=== PATIENT | male | born 1930 | race Caucasian/White ===

== ENCOUNTER 2016-05-28 14:11 | Inpatient (IN) | payer MEDICARE, BC ==
[2016-05-28] MEDS ORDERED: NS 0.9% 1000 ML* 1,000 ML IV ONE (14:32)
[2016-05-28 14:52] LABS: Hematocrit 41 % (42-52); Hemoglobin 13.6 g/dl (14.0-18.0); Mean Corpuscular HGB Conc 33 g/dl (31-36); Mean Corpuscular Hemoglobin 31 pg (27-31); Mean Corpuscular Volume 93 fL (80-94); Mean Platelet Volume 7 um3 (7.4-10.4); Red Blood Count 4.42 10^6/ul (4.0-5.4); Red Cell Distribution Width 13 % (10.5-15); White Blood Count 12.3 10^3/ul (3.5-10.8)
--- NOTE | 2016-05-28 15:08 | RAD ---
INDICATION: Pneumonia. COMPARISON: July 05, 2010 TECHNIQUE: PA and lateral dual-energy views were obtained. FINDINGS: Bones/Soft Tissues: There are no acute bony findings. A right-sided PICC catheter terminates in the superior vena cava Cardiomediastinal: The cardiomediastinal silhouette is normal. Lungs: Mild hyperinflation. There is platelike atelectasis in the left lung base. Pleura: There are no pleural effusions. Other: None IMPRESSION: HYPERINFLATION WITH MILD PLATELIKE ATELECTASIS LEFT LUNG BASE.
[2016-05-28 15:10] LABS: BUN/Creatinine Ratio 12.4 (8-20); C Reactive Protein 17.28 mg/L (< 5.00); Calcium 9.8 mg/dL (8.6-10.3); EGFR African American 104.2 (>60); Globulin 3.5 g/dL (2-4); Potassium 3.8 mmol/L (3.5-5.0); Total Bilirubin 0.8 mg/dL (0.2-1.0); Total Protein 7.5 g/dL (6.4-8.9)
[2016-05-28 15:11] LABS: Troponin I 0.01 ng/mL (<0.04)
[2016-05-28 15:40] LABS: Erythrocyte Sed Rate 43 mm/Hr (0-40)
[2016-05-28] MEDS ORDERED: Vancomycin(*) 1,000 MG in NS 0.9% 250 ML* 250 ML IVPB ONE (15:51)
[2016-05-28] MEDS ORDERED: Acetaminophen TAB* 325 MG PO ONE (16:02)
[2016-05-28] MEDS ORDERED: NS 0.9% 250 ML* 250 ML ONE (16:11)
[2016-05-28 16:46] LABS: Urine Bacteria Absent (Absent); Urine Bilirubin Negative (Negative); Urine Glucose 2+(150 mg/dL) (Negative); Urine Nitrite Negative (Negative)
--- NOTE | 2016-05-28 17:13 | ED ---
Manuel Fry Adam, scribed for Zev Campos MD on 05/28/16 at 1426 . Complex/Multi-Sys Presentation - HPI Summary HPI Summary: Pt is an 85 year old male presenting after an episode of shaking earlier today. He states that he suddenly began shaking violently after lunch this afternoon. The shaking subsided before he arrived at the ED. Pt's also states that the pt has been coughing for 10 days and spitting up brown phlegm. He denies any fever, CP, or SOB. Pt is diabetic and his sugar was 250 this morning before eating lunch. He takes DM medications orally. He also has a PICC line in to receive infusions for a bacterial infection in his foot. He goes to wound care. No surgical Hx. No tobacco/alcohol use. FMHx of DM. - History Of Current Complaint Time Seen by Provider: 05/28/16 14:21 Hx Obtained From: Patient, Family/Talent Rep - Onset/Duration: Sudden Onset, Lasting Minutes, Resolved Timing: Constant Severity Currently: Mild Severity Initially: Moderate Associated Signs And Symptoms: Positive: Cough, Other - Shaking - Allergies/Home Medications Allergies/Adverse Reactions: Allergies Allergy/AdvReac Type Severity Reaction Status Date / Time No Known Allergies Allergy Verified 05/27/16 10:55 Home Medications: Home Medications Acetaminophen TAB* [Tylenol TAB*] 650 mg PO BID PRN 05/28/16 [History Confirmed 05/28/16] Levothyroxine TAB* [Synthroid 75 MCG TAB*] 75 mcg PO DAILY 05/28/16 [History Confirmed 05/28/16] PMH/Surg Hx/FS Hx/Imm Hx Endocrine/Hematology History: Reports: Hx Diabetes Cardiovascular History: Reports: Hx Hypertension - Surgical History Surgery Procedure, Year, and Place: skin graft; appy; dislocation of the metatarsal right foot; Infectious Disease History: No Infectious Disease History: Reports: History Other Infectious Disease Denies: Traveled Outside the [place] in Last 30 Days - Family History Known Family History: Positive: Diabetes - Social History Occupation: Retired Lives: With Family - Alcohol Use: Occasionally Hx Substance Use: No Substance Use Type: Reports: None Hx Tobacco Use: No Smoking Status (MU): Never Smoked Tobacco Review of Systems Positive: Other - Shaking. Negative: Fever Negative: Chest Pain Positive: Cough. Negative: Shortness Of Breath All Other Systems Reviewed And Are Negative: Yes Physical Exam - Summary Physical Exam Summary: Vital signs: reviewed General: Patient is comfortable lying in stretcher with no signs of distress HEENT: within normal limits Lungs: CTA B/L CVS: S1 & S2 present. No murmurs appreciated. ABDOMEN: Soft, non-tender. No signs of distention. No rebound no guarding, and no masses palpated. Bowel sounds are normal. EXTREMITIES: FROM in all major joints, positive toes amputation in right foot. Positive picc line in the RUE> NEURO: Alert and oriented x 3. No acute neurological deficits. Speech is normal and follows commands. SKIN: Dry and warm Triage Information Reviewed: Yes Vital Signs On Initial Exam: Initial Vitals Temp Pulse Resp BP Pulse Ox 99.3 F 97 18 155/72 92 05/28/16 14:17 05/28/16 14:17 05/28/16 14:17 05/28/16 14:17 05/28/16 14:17 Vital Signs Reviewed: Yes Diagnostics - Vital Signs Vital Signs Temp Pulse Resp BP Pulse Ox 05/28/16 14:17 99.3 F 97 18 155/72 92 - Laboratory Result Diagrams: 05/28/16 14:40 05/28/16 14:40 Lab Statement: Any lab studies that have been ordered have been reviewed, and results considered in the medical decision making process. - Radiology CXR Radiology Interpretation Completed By: Radiologist - IMPRESSION: HYPERINFLATION WITH MILD PLATELIKE ATELECTASIS LEFT LUNG BASE. - Additional Comments Diagnostic Additional Comments: Lactic Acid - 2.6 Troponin I - 0.01 Influenza A (Rapid) - Negative Influenza B (Rapid) - Negative Complex Multi-Symp Course/Dx Course Of Treatment: Pt is an 85 year old male presenting after an episode of shaking earlier today. He states that he suddenly began shaking violently after lunch this afternoon. The shaking subsided before he arrived at the ED. Pt's also states that the pt has been coughing for 10 days and spitting up brown phlegm. He denies any fever, CP, or SOB. Pt is diabetic and his sugar was 250 this morning before eating lunch. He takes DM medications orally. He also has a PICC line in to receive infusions for a bacterial infection in his foot. He goes to wound care. No surgical Hx. No tobacco/alcohol use. FMHx of DM. Blood work shows an increased WBCs 12.3, slight anemia, no bands. ESR is 43, fibrinogen 449, Na 132, glucose 200 and lactic acid 2.6 and CRP 17.2. UA is negative. Flu is negative. CXR impression: hyperinflation w/ atelectasis of the lung. EKG NSR w/o DALIA. In the ED course he was given a dose of Vancomycin since he was schedule to get another dose today. He may need additional antibiotics which are going to be given by hospitalist. Patient is being treated for Osteomyelitis but he also has a PICC line in the right arm. He was given Tylenol for the fever. He was also started with IVF. I discuss my physical exam, findings and test results with Dr. Live from the hospitalist services and she agrees to admit patient to his services. Patient is hemodynamically stable alert and oriented x 3. Patient is hemodynamically stable and A+O x 3. - Diagnoses Differential Diagnoses/HQI/PQRI: Sepsis, Other - Sepsis, foot infection, hypoglycemia Provider Diagnoses: Osteomyelitis, Fever despite IV antibiotics - Physician Notifications Discussed Care Of Patient With: Dr. Live (Hospitalist) at 16:26. Patient will be admitted. Discharge - Discharge Plan Condition: Stable Disposition: ADMITTED TO [facility] Referrals: Demetrio Whitehead MD [Primary Care Provider] - The documentation as recorded by the Manuel webb Adam accurately reflects the service I personally performed and the decisions made by me, Zev Campos MD.
[2016-05-28] MEDS ORDERED: Dextrose 50% Syringe 50 ML* 25 GM/50 ML SYRINGE IV PUSH PRN (17:19)
[2016-05-28] MEDS ORDERED: Vancomycin per Pharmacy* NOTE FOLLOW UP PRN (17:46)
[2016-05-28] MEDS ORDERED: Vancomycin(*) 1,500 MG in NS 0.9% 250 ML* 250 ML IVPB ONE (18:30)
[2016-05-28] MEDS: NS 0.9% 1000 ML* 1,000 ML IV SCH (18:45)
[2016-05-28] MEDS: Insulin LISPRO* 1 UNITS UNIT SUBCUT SCH (19:45)
[2016-05-28] MEDS: Acetaminophen TAB* 325 MG PO PRN (20:29)
--- NOTE | 2016-05-28 20:45 | HP ---
HISTORY AND PHYSICAL: ADDENDUM: Levon Perez is an 85-year-old male with history of transmetatarsal amputation of the righ t foot in remote past due to trauma. The patient also has history of diabetes and recent diagnosis of chronic osteo of the right foot, treated with outpatient doses of intravenous daptomycin. Today, he presented after he spiked a fever of 102 and got confused. But for mild leukocytosis, there is no other evidence of infection. It is possible that his osteomyelitis is causing the fever, althoug h the wound does not appear to be infected acutely. The patient is going to be observed on telemetr y monitored bed. Infectious Diseases consult is going to be requested. Further recommendations as noted in history and physical dictated by Jena Kramer NP on 05/28/16, with which I lorelei collins [id number]/[facility] #: [id number]
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
[2016-05-28] MEDS: Cefepime(*) 2 GM in NS 0.9% 50 ML* 50 ML IVPB SCH (22:00)
[2016-05-28] MEDS: Heparin VIAL(*) 5000 UNITS/ML VIAL (FIVE THOUSAND) SUBCUT SCH (23:45)
[2016-05-29] MEDS: Levothyroxine TAB* 75 MCG TAB PO SCH (05:26)
[2016-05-29] MEDS: Heparin VIAL(*) 5000 UNITS/ML VIAL (FIVE THOUSAND) SUBCUT SCH ×3 (05:26→23:15)
[2016-05-29] MEDS: Acetaminophen TAB* 325 MG PO PRN ×2 (05:26→16:06)
[2016-05-29 06:17] LABS: Hematocrit 37 % (42-52); Hemoglobin 12.5 g/dl (14.0-18.0); Mean Corpuscular HGB Conc 34 g/dl (31-36); Mean Corpuscular Hemoglobin 31 pg (27-31); Mean Corpuscular Volume 93 fL (80-94); Mean Platelet Volume 7 um3 (7.4-10.4); Red Cell Distribution Width 14 % (10.5-15); White Blood Count 8.4 10^3/ul (3.5-10.8)
[2016-05-29] MEDS: Vancomycin(*) 1,250 MG IV IVPB SCH ×4 (06:17→17:24)
[2016-05-29] MEDS: NS 0.9% 1000 ML* 1,000 ML IV SCH ×2 (06:18→17:25)
[2016-05-29 06:34] LABS: BUN/Creatinine Ratio 17.1 (8-20); Calcium 8.8 mg/dL (8.6-10.3); EGFR African American 125.1 (>60); EGFR Non-African American 97.2 (>60); Potassium 3.6 mmol/L (3.5-5.0)
[2016-05-29] MEDS: Cefepime(*) 2 GM in NS 0.9% 50 ML* 50 ML IVPB SCH ×2 (08:15→20:13)
[2016-05-29] MEDS: Lisinopril TAB* 10 MG PO SCH (08:15)
[2016-05-29] MEDS: Insulin LISPRO* 1 UNITS UNIT SUBCUT SCH ×3 (08:16→17:24)
[2016-05-29] MEDS ORDERED: DAPTOMYCIN IV SCH (09:00)
--- NOTE | 2016-05-29 10:52 | PN ---
Subjective Date of Service: 05/29/16 Interval History: . Pt reports "I feel pretty good" and dont understand why I am here reporting he "never felt bad and only was shaking". Today he denies fever or further shaking/ chills. 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 Objective Active Medications: Acetaminophen (Tylenol Tab*) 650 mg PO Q4H PRN PRN Reason: FEVER/PAIN Last Admin: 05/29/16 05:26 Dose: 650 mg Dextrose (D50w Syringe 50 Ml*) 12.5 gm IV PUSH .FOR FS < 60 - SS PRN PRN Reason: FS < 60 Heparin Sodium (Porcine) (Heparin Vial(*)) 5,000 units SUBCUT Q8HR [facility] Last Admin: 05/29/16 05:26 Dose: 5,000 units Sodium Chloride (Ns 0.9% 1000 Ml*) 1,000 mls @ 100 mls/hr IV PER RATE [facility] Last Admin: 05/29/16 06:18 Dose: 100 mls/hr Cefepime HCl 2 gm/ Sodium (Chloride) 50 mls @ 100 mls/hr IVPB Q12H [facility] Last Admin: 05/29/16 08:15 Dose: 100 mls/hr Vancomycin HCl 1,250 mg/ (Sodium Chloride) 250 mls @ 166.667 mls/hr IVPB Q12H [facility] Last Admin: 05/29/16 06:17 Dose: 166.667 mls/hr Insulin Human Lispro (Humalog*) 0 - 10 units SUBCUT AC [facility] PRN Reason: Protocol Last Admin: 05/29/16 08:16 Dose: 2 units Levothyroxine Sodium (Synthroid Tab*) 75 mcg PO DAILY@0600 [facility] Last Admin: 05/29/16 05:26 Dose: 75 mcg Lisinopril (Prinivil Tab*) 10 mg PO DAILY [facility] Last Admin: 05/29/16 08:15 Dose: 10 mg Pharmacy Consult (Vancomycin Per Pharmacy*) 1 note FOLLOW UP . PRN PRN Reason: PER PROTOCOL Pharmacy Profile Note (Vancomycin Trough Check) 1 note FOLLOW UP 0600 ONE Stop: 05/30/16 06:01 Vital Signs 05/28/16 05/28/16 05/28/16 17:02 17:16 17:25 Temperature Pulse Rate 103 95 Respiratory 21 18 21 Rate Blood Pressure 144/75 (mmHg) O2 Sat by Pulse 94 95 Oximetry 05/28/16 05/28/16 05/28/16 17:30 18:00 18:13 Temperature 99.7 F Pulse Rate 92 Respiratory 22 27 Rate Blood Pressure 134/61 131/94 (mmHg) O2 Sat by Pulse 96 Oximetry 05/28/16 05/28/16 05/28/16 18:43 20:00 23:59 Temperature 101.8 F 98.2 F Pulse Rate 89 64 Respiratory 18 16 16 Rate Blood Pressure 119/51 99/47 (mmHg) O2 Sat by Pulse 93 96 96 Oximetry 05/29/16 05/29/16 05/29/16 05:12 07:44 08:00 Temperature 100.0 F 98.1 F Pulse Rate 73 65 Respiratory 20 15 15 Rate Blood Pressure 127/45 110/43 (mmHg) O2 Sat by Pulse 100 90 92 Oximetry Oxygen Devices in Use Now: None Appearance: elderly male laying in bed in NAD. A+O x3, noted mild confusion easily reoriented Eyes: No Scleral Icterus, PERRLA Ears/Nose/Mouth/Throat: NL Teeth, Lips, Gums, Mucous Membranes Moist Neck: NL Appearance and Movements; NL JVP Respiratory: Symmetrical Chest Expansion and Respiratory Effort, Clear to Auscultation Cardiovascular: NL Sounds; No Murmurs; No JVD, RRR, No Edema Abdominal: NL Sounds; No Tenderness; No Distention Extremities: No Edema, - - s/p right transmetatarsal amputaion - no wounds or drainage noted Skin: No Rash or Ulcers, No Nodules or Sclerosis Neurological: Alert and Oriented x 3, NL Sensation, NL Muscle Strength and Tone Lines/Tubes/Other Access: Clean, Dry and Intact Peripheral IV Nutrition: Taking PO's Result Diagrams: 05/29/16 05:26 05/29/16 05:26 Microbiology and Other Data: Microbiology 05/28/16 16:29 Gram Stain - Final Sputum Assess/Plan/Problems-Billing Assessment: Mr. Ji is a 85 yo male with a PMH of traumatic right transmetatarsal amputation in 1947, with hx of right osteomyelitis currently on IV abx as an outpt, hx of DM, HTN who presented 3/2 with complaints of rigor, confusion and fever. - Patient Problems (1) Bacterial sepsis Comment: - Pts qSOFA score on admission was 1, however he mets sepsis criteria with AMS, fever, leukocytosis, increased RR and was found to have Klebsiella growng in his Blood cx's suspect form PICC line. PICC line removed. - ID following, continue cefepime and vanco. Repeat blood cx's in am. - NS @ 75 mls/hr (2) Diabetes Comment: - FSBG ACHS with lispro SS - CC diet (3) HTN (hypertension) Comment: - controlled. COntinue lisinopril (4) Hypothyroid Comment: - continue synthroid (5) DVT prophylaxis Comment: HSQ (6) Full code status Status and Disposition: inpatient with bacteremia requiring IV abx.
--- NOTE | 2016-05-29 13:28 | CONS ---
CONSULTATION REPORT: DATE OF CONSULT: 05/29/16 REQUESTING PROVIDER: Jena Kramer NP CONSULTING SERVICE: Infectious Disease. REASON FOR CONSULT: Rigors. IMPRESSION: 1. Sepsis present on admission, improving. 2. Gram-negative bob bacteremia without dysuria or abdominal symptoms. Most likely, this is an intravascular device infection, he has a PICC line. His rigors came on soon after his infusions yesterday. 3. 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 4. He has been having hyperbaric oxygen therapy and now with hearing loss and bilateral tube placement. 5. Type 2 diabetes with neuropathy. RECOMMENDATIONS: 1. Continue vancomycin, goal trough 15 to 20, to cover his original infection, which I presume to be MRSA related. I will also get a hold of his infectious disease doctor in [place] to confirm that and find out more about his recent infection history. 2. Continue cefepime to cover the gram-negative bob and will remove his PICC line, recheck blood cultures tomorrow assuming no other source is found including urine and if the blood culture is clear, he can have a new PICC line placed. 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 He is followed at [place]. He has had wound care there, was started on antibiotics in March. The wound is closed up. His foot to him seems back to normal. He is continued on daptomycin infusions once a day and hyperbarics up until last week when he developed acute hearing loss during a session. He has felt well until yesterday about an hour after the infusion, he developed shaking chills that he could not stop. It came on a little bit later. He had a temperature of 103, so he came to the hospital. His white count was 12,000. His influenza PCR was negative. He had a fever of 39 degrees overnight. His blood pressure was in the 90s. Heart rate in the 120s. Lactate of 3 when he came into the hospital. He was started on vancomycin. I discussed the case with Jena A. Winkleblack-Oro, LABOR DELIVERY RN, overnight and added cefepime. Blood cultures this morning were positive for gram-negative rods. He and his both have a cough for about 10 days without dyspnea or chest pain that is occasionally productive of thin sputum. A sample was sent last night, showed 4+ epithelial cells, 4+ polys, 4+ gram-negative coccobacilli, 4+ gram- positive bacilli, 4+ gram-positive cocci, and 3+ gram-negative diplococci. Cultures pending. A chest x-ray showed atelectasis at the left base. He has no other focal signs or symptoms. No prosthetic material present. PAST MEDICAL HISTORY: 1. Type 2 diabetes. 2. 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 3. Obesity. 4. Hypothyroidism. 5. Hyperlipidemia. 6. Osteoarthritis. 7. Hypertension. 8. Status post skin grafts to right foot x2. 9. Status post appendectomy. MEDICATIONS: 1. Tylenol. 2. Dextrose. 3. Heparin subcutaneous injection. 4. Insulin lispro. 5. Levothyroxine. 6. Lisinopril. 7. Cefepime 2 g every 12 hours. 8. Vancomycin 1250 mg every 12 hours. ALLERGIES: No known drug allergies. FAMILY HISTORY: No recurrent infections. SOCIAL HISTORY: Lives at [facility] with his . He has no travel. No sick contacts. REVIEW OF SYSTEMS: All negative except as noted above. PHYSICAL EXAM: Vital Signs: Temperature is 36.7, heart rate 60, respiratory rate 15, blood pressure 110/40, O2 sat 90% on room air. General: He is not in distress. He is not diaphoretic. Neurological: He is awake, oriented x3. Follows all commands. Moves all extremities. HEENT: There is no conjunctival hemorrhage. Oropharynx without lesions. Neck: Neck is supple without nuchal rigidity. Lymph Nodes: There is no cervical, supraclavicular, inguinal, axillary, or epitrochlear lymphadenopathy. Lungs: Clear to auscultation bilaterally. Heart: Regular rate and rhythm without rubs, murmurs, or gallops. Abdomen: Soft, nontender, nondistended, and obese. There is no rebound. Skin: There is no rash or splinter hemorrhages. Musculoskeletal: Right foot, distal half is absent. There is a small area of induration without eschar or erythema on the plantar aspect of the previous wound. DIAGNOSTIC STUDIES/LAB DATA: White blood cell count 8, hemoglobin 12, and platelets 214. Creatinine 0.7. Lactic acid is 1, down from 2.6. Please see impressions and recommendations as outlined above. Thanks for asking me to see Mr. Perez in consultation. [id number]/[facility] #: [id number] MTDD
[2016-05-30] MEDS: NS 0.9% 1000 ML* 1,000 ML IV SCH ×2 (01:10→19:46)
[2016-05-30] MEDS ORDERED: Vancomycin Trough Check NOTE FOLLOW UP ONE (06:00)
[2016-05-30] MEDS: Levothyroxine TAB* 75 MCG TAB PO SCH (06:02)
[2016-05-30] MEDS: Heparin VIAL(*) 5000 UNITS/ML VIAL (FIVE THOUSAND) SUBCUT SCH ×3 (06:02→20:57)
[2016-05-30 06:33] LABS: Hematocrit 37 % (42-52); Hemoglobin 12.5 g/dl (14.0-18.0); Mean Corpuscular HGB Conc 33 g/dl (31-36); Mean Corpuscular Hemoglobin 31 pg (27-31); Mean Corpuscular Volume 93 fL (80-94); Mean Platelet Volume 7 um3 (7.4-10.4); Red Blood Count 4.04 10^6/ul (4.0-5.4); Red Cell Distribution Width 13 % (10.5-15); White Blood Count 5.4 10^3/ul (3.5-10.8)
[2016-05-30 07:11] LABS: BUN/Creatinine Ratio 13.7 (8-20); Calcium 8.8 mg/dL (8.6-10.3); EGFR Non-African American 101.9 (>60); Potassium 3.9 mmol/L (3.5-5.0)
[2016-05-30] MEDS: Vancomycin(*) 1,250 MG IV IVPB SCH ×2 (07:11)
[2016-05-30] MEDS: Insulin LISPRO* 1 UNITS UNIT SUBCUT SCH ×4 (08:44→17:44)
[2016-05-30] MEDS: Lisinopril TAB* 10 MG PO SCH (08:44)
--- NOTE | 2016-05-30 09:44 | PN ---
Subjective Date of Service: 05/30/16 Interval History: Patient seen and examined at bedside. Mr. Perez is sitting up on edge of bed, eating breakfast. He denies fever/chills, CP, SOB, abd pain, n/v, LE pain. He states, "I didn't know I had an infection. I just got really bad shaking." No other acute concerns. The patient does not recall if someone had discussed this with him previously. Family History: Unchanged from Admission Social History: Unchanged from Admission Past Medical History: Unchanged from Admission Objective Active Medications: Acetaminophen (Tylenol Tab*) 650 mg PO Q4H PRN PRN Reason: FEVER/PAIN Last Admin: 05/29/16 16:06 Dose: 650 mg Dextrose (D50w Syringe 50 Ml*) 12.5 gm IV PUSH .FOR FS < 60 - SS PRN PRN Reason: FS < 60 Heparin Sodium (Porcine) (Heparin Vial(*)) 5,000 units SUBCUT Q8HR [facility] Last Admin: 05/30/16 06:02 Dose: 5,000 units Cefepime HCl 2 gm/ Sodium (Chloride) 50 mls @ 100 mls/hr IVPB Q12H [facility] Last Admin: 05/29/16 20:13 Dose: 100 mls/hr Vancomycin HCl 1,250 mg/ (Sodium Chloride) 250 mls @ 166.667 mls/hr IVPB Q12H [facility] Last Admin: 05/30/16 07:11 Dose: 166.667 mls/hr Sodium Chloride (Ns 0.9% 1000 Ml*) 1,000 mls @ 75 mls/hr IV PER RATE [facility] Last Admin: 05/30/16 01:10 Dose: 75 mls/hr Insulin Human Lispro (Humalog*) 0 - 10 units SUBCUT AC [facility] PRN Reason: Protocol Last Admin: 05/30/16 08:44 Dose: 2 units Levothyroxine Sodium (Synthroid Tab*) 75 mcg PO DAILY@0600 [facility] Last Admin: 05/30/16 06:02 Dose: 75 mcg Lisinopril (Prinivil Tab*) 10 mg PO DAILY [facility] Last Admin: 05/30/16 08:44 Dose: 10 mg Pharmacy Consult (Vancomycin Per Pharmacy*) 1 note FOLLOW UP . PRN PRN Reason: PER PROTOCOL Vital Signs 05/29/16 05/29/16 05/29/16 15:23 19:50 20:00 Temperature 100.2 F 98.2 F Pulse Rate 79 71 Respiratory 16 16 16 Rate Blood Pressure 100/36 120/58 (mmHg) O2 Sat by Pulse 96 93 95 Oximetry 05/29/16 05/30/16 23:42 07:43 Temperature 98.7 F 97.6 F Pulse Rate 61 70 Respiratory 16 18 Rate Blood Pressure 113/46 132/61 (mmHg) O2 Sat by Pulse 95 93 Oximetry Oxygen Devices in Use Now: None Appearance: Older male patient, sitting on edge of bed, in NAD Eyes: No Scleral Icterus, PERRLA Ears/Nose/Mouth/Throat: Clear Oropharnyx, Mucous Membranes Moist Neck: NL Appearance and Movements; NL JVP Respiratory: Symmetrical Chest Expansion and Respiratory Effort, Clear to Auscultation Cardiovascular: NL Sounds; No Murmurs; No JVD, RRR, No Edema Abdominal: NL Sounds; No Tenderness; No Distention Extremities: No Edema, No Clubbing, Cyanosis, - - s/p right transmetatarsal amputation, no drainage or wounds noted Skin: No Rash or Ulcers Neurological: Alert and Oriented x 3 - with some mild forgetfulness and confusion, patient reorients easily Lines/Tubes/Other Access: Clean, Dry and Intact Peripheral IV Nutrition: Taking PO's Result Diagrams: 05/30/16 06:11 05/30/16 06:11 Microbiology and Other Data: Microbiology 05/28/16 16:29 Gram Stain - Final Sputum Assess/Plan/Problems-Billing Assessment: Mr. Ji is a 85 yo male with a PMH of traumatic right transmetatarsal amputation in 1947, with hx of right osteomyelitis currently on IV abx as an outpt, hx of DM, HTN who presented 3/2 with complaints of rigor, confusion and fever. - Patient Problems (1) Bacterial sepsis Code(s): A41.9 - SEPSIS, UNSPECIFIED ORGANISM Comment: The qSOFA score on admission was 1; however he meets sepsis criteria with AMS, fever, leukocytosis, increased RR, and Klebsiella growth in his blood cultures. Suspected source is PICC line, which has been removed. ID following, continue cefepime and vancomycin. Repeat blood cultures drawn this AM. Continue IV NS @ 75 mls/hr. (2) Diabetes Code(s): E11.9 - TYPE 2 DIABETES MELLITUS WITHOUT COMPLICATIONS Comment: BG 180s-200s. Continue FSBG ACHS. Increase Lispro SSI and add carb coverage. Consistent carbohydrate diet. (3) HTN (hypertension) Code(s): I10 - ESSENTIAL (PRIMARY) HYPERTENSION Comment: Normotensive. Continue lisinopril. (4) Hypothyroid Code(s): E03.9 - HYPOTHYROIDISM, UNSPECIFIED Comment: Continue levothyroxine. (5) DVT prophylaxis Code(s): [id number] - Comment: SQ heparin (6) Full code status Code(s): Z78.9 - OTHER SPECIFIED HEALTH STATUS Status and Disposition: Inpatient with bacteremia requiring IV abx.
[2016-05-30] MEDS: Cefepime(*) 2 GM in NS 0.9% 50 ML* 50 ML IVPB SCH ×2 (10:04→20:57)
[2016-05-30] MEDS: Vancomycin(*) 1,000 MG in NS 0.9% 250 ML* 250 ML IVPB SCH (16:28)
[2016-05-31] MEDS: Vancomycin(*) 1,000 MG in NS 0.9% 250 ML* 250 ML IVPB SCH ×3 (00:28→16:47)
[2016-05-31] MEDS: Heparin VIAL(*) 5000 UNITS/ML VIAL (FIVE THOUSAND) SUBCUT SCH ×3 (06:52→20:53)
[2016-05-31] MEDS: Levothyroxine TAB* 75 MCG TAB PO SCH (06:53)
[2016-05-31 07:43] LABS: BUN/Creatinine Ratio 13.7 (8-20); Calcium 8.7 mg/dL (8.6-10.3); EGFR Non-African American 101.9 (>60); Potassium 3.8 mmol/L (3.5-5.0)
[2016-05-31] MEDS ORDERED: Vancomycin Trough Check NOTE FOLLOW UP ONE (08:00)
[2016-05-31] MEDS: Cefepime(*) 2 GM in NS 0.9% 50 ML* 50 ML IVPB SCH ×2 (08:24→20:11)
[2016-05-31] MEDS: Insulin LISPRO* 1 UNITS UNIT SUBCUT SCH ×6 (09:11→18:31)
[2016-05-31] MEDS: Lisinopril TAB* 10 MG PO SCH (09:11)
--- NOTE | 2016-05-31 10:23 | PN ---
Subjective Date of Service: 05/31/16 Interval History: Patient seen and examined at bedside. He is resting comfortably. He denies fever /chills, CP, SOB, abd pain, leg pain, n/v. No acute nursing concerns. Family History: Unchanged from Admission Social History: Unchanged from Admission Past Medical History: Unchanged from Admission Objective Active Medications: Acetaminophen (Tylenol Tab*) 650 mg PO Q4H PRN PRN Reason: FEVER/PAIN Last Admin: 05/29/16 16:06 Dose: 650 mg Dextrose (D50w Syringe 50 Ml*) 12.5 gm IV PUSH .FOR FS < 60 - SS PRN PRN Reason: FS < 60 Heparin Sodium (Porcine) (Heparin Vial(*)) 5,000 units SUBCUT Q8HR [facility] Last Admin: 05/31/16 06:52 Dose: 5,000 units Cefepime HCl 2 gm/ Sodium (Chloride) 50 mls @ 100 mls/hr IVPB Q12H [facility] Last Admin: 05/31/16 08:24 Dose: 100 mls/hr Sodium Chloride (Ns 0.9% 1000 Ml*) 1,000 mls @ 75 mls/hr IV PER RATE [facility] Last Admin: 05/30/16 19:46 Dose: 75 mls/hr Vancomycin HCl 1,000 mg/ (Sodium Chloride) 250 mls @ 166.667 mls/hr IVPB Q8H [facility] Last Admin: 05/31/16 00:28 Dose: 166.667 mls/hr Insulin Human Lispro (Humalog*) 0 units SUBCUT AC [facility] PRN Reason: Protocol Last Admin: 05/31/16 09:11 Dose: 6 units Insulin Human Lispro (Humalog*) 0 - 10 units SUBCUT AC [facility] PRN Reason: Protocol Last Admin: 05/31/16 09:11 Dose: 3 unit Levothyroxine Sodium (Synthroid Tab*) 75 mcg PO DAILY@0600 [facility] Last Admin: 05/31/16 06:53 Dose: 75 mcg Lisinopril (Prinivil Tab*) 10 mg PO DAILY [facility] Last Admin: 05/31/16 09:11 Dose: 10 mg Pharmacy Consult (Vancomycin Per Pharmacy*) 1 note FOLLOW UP . PRN PRN Reason: PER PROTOCOL Vital Signs 05/30/16 05/30/16 05/30/16 15:39 15:42 21:10 Temperature 97.8 F Pulse Rate 66 73 Respiratory 16 20 Rate Blood Pressure 99/49 118/58 (mmHg) O2 Sat by Pulse 95 Oximetry 05/30/16 05/31/16 05/31/16 23:31 07:11 07:43 Temperature 97.3 F 97.9 F Pulse Rate 63 57 Respiratory 16 16 16 Rate Blood Pressure 136/53 119/46 (mmHg) O2 Sat by Pulse 97 96 96 Oximetry Oxygen Devices in Use Now: None Appearance: Older male patient, lying in bed, in NAD Eyes: PERRLA Ears/Nose/Mouth/Throat: Clear Oropharnyx, Mucous Membranes Moist Neck: NL Appearance and Movements; NL JVP Respiratory: Symmetrical Chest Expansion and Respiratory Effort, Clear to Auscultation Cardiovascular: NL Sounds; No Murmurs; No JVD, RRR Abdominal: NL Sounds; No Tenderness; No Distention Extremities: No Edema, No Clubbing, Cyanosis, - - s/p right transmetatarsal amputation with no open wounds/drainage noted Skin: No Rash or Ulcers Neurological: Alert and Oriented x 3 Lines/Tubes/Other Access: Clean, Dry and Intact Peripheral IV Result Diagrams: 05/30/16 06:11 05/31/16 07:23 Microbiology and Other Data: Microbiology 05/28/16 16:29 Gram Stain - Final Sputum Assess/Plan/Problems-Billing Assessment: Mr. Ji is a 85 yo male with a PMH of traumatic right transmetatarsal amputation in 1947, with hx of right osteomyelitis currently on IV abx as an outpt, hx of DM, HTN who presented 3/2 with complaints of rigor, confusion and fever. - Patient Problems (1) Bacterial sepsis Code(s): A41.9 - SEPSIS, UNSPECIFIED ORGANISM Comment: The qSOFA score on admission was 1; however he meets sepsis criteria with AMS, fever, leukocytosis, increased RR, and Klebsiella growth in his blood cultures. Suspected source is PICC line, which has been removed. ID following, continue cefepime and vancomycin. Repeat blood cultures drawn with no growth thus far. Continue IV NS @ 75 mls/hr. (2) Diabetes Code(s): E11.9 - TYPE 2 DIABETES MELLITUS WITHOUT COMPLICATIONS Comment: BG 180s-200s. Continue FSBG ACHS. Increase Lispro SSI and add carb coverage. Will start Lantus 10 units this evening. Consistent carbohydrate diet. (3) HTN (hypertension) Code(s): I10 - ESSENTIAL (PRIMARY) HYPERTENSION Comment: Normotensive. Continue lisinopril. (4) Hypothyroid Code(s): E03.9 - HYPOTHYROIDISM, UNSPECIFIED Comment: Continue levothyroxine. (5) DVT prophylaxis Code(s): CGE0357 - Comment: SQ heparin (6) Full code status Code(s): Z78.9 - OTHER SPECIFIED HEALTH STATUS Status and Disposition: Inpatient with bacteremia requiring IV abx. Will require new PICC placement and likely further outpatient IV abx.
[2016-05-31] MEDS: NS 0.9% 1000 ML* 1,000 ML IV SCH (16:47)
[2016-05-31] MEDS: Insulin GLARGINE(*) 1 UNITS UNIT SUBCUT SCH (20:53)
[2016-06-01] MEDS: Vancomycin(*) 1,000 MG in NS 0.9% 250 ML* 250 ML IVPB SCH ×4 (00:36→23:22)
[2016-06-01] MEDS: Levothyroxine TAB* 75 MCG TAB PO SCH (05:43)
[2016-06-01] MEDS: Heparin VIAL(*) 5000 UNITS/ML VIAL (FIVE THOUSAND) SUBCUT SCH ×3 (05:43→21:14)
[2016-06-01 06:34] LABS: Hematocrit 37 % (42-52); Hemoglobin 12.4 g/dl (14.0-18.0); Mean Corpuscular HGB Conc 34 g/dl (31-36); Mean Corpuscular Hemoglobin 31 pg (27-31); Mean Corpuscular Volume 92 fL (80-94); Mean Platelet Volume 7 um3 (7.4-10.4); Red Blood Count 3.98 10^6/ul (4.0-5.4); Red Cell Distribution Width 14 % (10.5-15); White Blood Count 7.5 10^3/ul (3.5-10.8)
[2016-06-01 06:56] LABS: BUN/Creatinine Ratio 12.9 (8-20); EGFR African American 137.5 (>60); EGFR Non-African American 106.9 (>60); Potassium 3.8 mmol/L (3.5-5.0)
[2016-06-01] MEDS: Insulin LISPRO* 1 UNITS UNIT SUBCUT SCH ×6 (08:58→17:56)
[2016-06-01] MEDS: Lisinopril TAB* 10 MG PO SCH (09:00)
[2016-06-01] MEDS: Cefepime(*) 2 GM in NS 0.9% 50 ML* 50 ML IVPB SCH ×2 (09:01→21:14)
--- NOTE | 2016-06-01 10:47 | PN ---
Subjective Date of Service: 06/01/16 Interval History: Patient seen and examined at bedside. Mr. Perez is lying in bed and denies any acute concerns, including foot or leg pain, fever/chills, chest pain, SOB, abd pain, n/v. at bedside. She has inquired about further wound care and has requested the wound clinic look at the patient's foot, as they previously followed with the patient. We examined the foot together at bedside and no open areas noted. Pt denies drainage or focal points of pain; however, she still requested wound care consult. She also requested nutrition and unit educator consult to know how to better take care of her at home. Family History: Unchanged from Admission Social History: Unchanged from Admission Past Medical History: Unchanged from Admission Objective Active Medications: Acetaminophen (Tylenol Tab*) 650 mg PO Q4H PRN PRN Reason: FEVER/PAIN Last Admin: 05/29/16 16:06 Dose: 650 mg Dextrose (D50w Syringe 50 Ml*) 12.5 gm IV PUSH .FOR FS < 60 - SS PRN PRN Reason: FS < 60 Heparin Sodium (Porcine) (Heparin Vial(*)) 5,000 units SUBCUT Q8HR [facility] Last Admin: 06/01/16 05:43 Dose: 5,000 units Cefepime HCl 2 gm/ Sodium (Chloride) 50 mls @ 100 mls/hr IVPB Q12H [facility] Last Admin: 06/01/16 09:01 Dose: 100 mls/hr Sodium Chloride (Ns 0.9% 1000 Ml*) 1,000 mls @ 75 mls/hr IV PER RATE [facility] Last Admin: 05/31/16 16:47 Dose: 75 mls/hr Vancomycin HCl 1,000 mg/ (Sodium Chloride) 250 mls @ 166.667 mls/hr IVPB Q8H [facility] Last Admin: 06/01/16 10:20 Dose: 166.667 mls/hr Insulin Glargine (Lantus(*)) 10 units SUBCUT Q24H [facility] Last Admin: 05/31/16 20:53 Dose: 10 units Insulin Human Lispro (Humalog*) 0 units SUBCUT AC [facility] PRN Reason: Protocol Last Admin: 06/01/16 08:58 Dose: 3 units Insulin Human Lispro (Humalog*) 0 - 10 units SUBCUT AC [facility] PRN Reason: Protocol Last Admin: 06/01/16 08:59 Dose: 6 unit Levothyroxine Sodium (Synthroid Tab*) 75 mcg PO DAILY@0600 [facility] Last Admin: 06/01/16 05:43 Dose: 75 mcg Lisinopril (Prinivil Tab*) 10 mg PO DAILY [facility] Last Admin: 06/01/16 09:00 Dose: 10 mg Pharmacy Consult (Vancomycin Per Pharmacy*) 1 note FOLLOW UP . PRN PRN Reason: PER PROTOCOL Vital Signs 05/31/16 05/31/16 05/31/16 15:23 20:00 23:36 Temperature 97.5 F 98.5 F Pulse Rate 72 58 Respiratory 18 18 Rate Blood Pressure 120/68 131/69 (mmHg) O2 Sat by Pulse 96 96 Oximetry 06/01/16 07:24 Temperature 98.1 F Pulse Rate 69 Respiratory 18 Rate Blood Pressure 139/73 (mmHg) O2 Sat by Pulse 93 Oximetry Oxygen Devices in Use Now: None Appearance: Older gentleman, lying in bed, in NAD Eyes: PERRLA Ears/Nose/Mouth/Throat: Clear Oropharnyx, Mucous Membranes Moist Neck: NL Appearance and Movements; NL JVP Respiratory: Symmetrical Chest Expansion and Respiratory Effort, Clear to Auscultation Cardiovascular: NL Sounds; No Murmurs; No JVD, RRR Abdominal: NL Sounds; No Tenderness; No Distention Extremities: No Edema, No Clubbing, Cyanosis, - - s/p right transmetatarsal amputation, no open wounds or drainage, small area of eschar to sole of foot Neurological: Alert and Oriented x 3 Lines/Tubes/Other Access: Clean, Dry and Intact Peripheral IV Nutrition: Taking PO's Result Diagrams: 06/01/16 06:24 06/01/16 06:24 Microbiology and Other Data: Microbiology 05/28/16 16:29 Gram Stain - Final Sputum Assess/Plan/Problems-Billing Assessment: Mr. Ji is a 85 yo male with a PMH of traumatic right transmetatarsal amputation in 1947, with hx of right osteomyelitis currently on IV abx as an outpt, hx of DM, HTN who presented 3/2 with complaints of rigor, confusion and fever. - Patient Problems (1) Bacterial sepsis Code(s): A41.9 - SEPSIS, UNSPECIFIED ORGANISM Comment: The qSOFA score on admission was 1; however he meets sepsis criteria with AMS, fever, leukocytosis, increased RR, and Klebsiella growth in his blood cultures. Suspected source is PICC line, which has been removed. ID following, continue cefepime and vancomycin. Repeat blood cultures drawn with no growth thus far. (2) Diabetes Code(s): E11.9 - TYPE 2 DIABETES MELLITUS WITHOUT COMPLICATIONS Comment: BG 140s-200s. Continue FSBG ACHS with Lispro SSI and increase carb coverage. Continue Lantus in evening. Consistent carbohydrate diet. (3) HTN (hypertension) Code(s): I10 - ESSENTIAL (PRIMARY) HYPERTENSION Comment: Normotensive. Continue lisinopril. (4) Hypothyroid Code(s): E03.9 - HYPOTHYROIDISM, UNSPECIFIED Comment: Continue levothyroxine. (5) DVT prophylaxis Code(s): [id number] - Comment: SQ heparin (6) Full code status Code(s): Z78.9 - OTHER SPECIFIED HEALTH STATUS Status and Disposition: Inpatient with bacteremia requiring IV abx. Will require new PICC placement and likely further outpatient IV abx.
--- NOTE | 2016-06-01 12:51 | PN ---
Progress Note - Progress Note SOAP: Subjective: DOS: 06/01/16 CC: picc infection HPI: 85 yo man on daptomycin as outpatient for right foot osteomyelitis, admitted with fever and rigor after infusion. Klebsiella in blood. Improved on antibiotics. No further fever or rigors. Appetite is good. Right foot ulcer is healed. No rash or diarrhea. Objective: [] Vital Signs Temp 36.7 C 06/01/16 07:24 Pulse 69 06/01/16 07:24 Resp 18 06/01/16 07:24 BP 139/73 06/01/16 07:24 Pulse Ox 93 06/01/16 07:24 Intake & Output 05/31/16 06/01/16 06/01/16 18:59 06:59 18:59 Intake Total 3411 490 Output Total 500 4000 500 Balance 2911 -3510 -500 Intake: IV Fluids 1061 NS (0.9%) 1061 IVPB 330 50 ABX - CEFEPIME 60 50 ABX - VANCOMYCIN 270 Oral 2020 440 Output: Urine 500 4000 500 Other: # Bowel Movements 1 Estimated Stool Amount Small Gen:no distress Neuro:AAOx3 HEENT:MMM no lesion Neck:supple LN: palpable LN Heart:RRR no murmur Lungs:CTA BL Abd:+BS NTND soft Skin: no rash MSK: R TMA, lateral plantar callous Laboratory Results - last 24 hr 05/31/16 05/31/16 06/01/16 16:53 20:15 06:24 WBC 7.5 RBC 3.98 L Hgb 12.4 L Hct 37 L MCV 92 MCH 31 MCHC 34 RDW 14 Plt Count 247 MPV 7 L Neut % (Auto) 57.7 Lymph % (Auto) 20.7 L [place] % (Auto) 12.6 H Eos % (Auto) 7.8 H Baso % (Auto) 1.2 Absolute Neuts (auto) 4.3 Absolute Lymphs (auto) 1.5 Absolute Monos (auto) 0.9 H Absolute Eos (auto) 0.6 Absolute Basos (auto) 0.1 Absolute Nucleated RBC 0.01 Nucleated RBC % 0.1 Sodium Potassium Chloride Carbon Dioxide Anion Gap BUN Creatinine Est GFR ( Amer) Est GFR (Non-Af Amer) BUN/Creatinine Ratio Glucose POC Glucose (mg/dL) 178 H 198 H Calcium 03/09/1206/01/16 06/01/16 06:24 08:28 12:04 WBC RBC Hgb Hct MCV MCH MCHC RDW Plt Count MPV Neut % (Auto) Lymph % (Auto) [place] % (Auto) Eos % (Auto) Baso % (Auto) Absolute Neuts (auto) Absolute Lymphs (auto) Absolute Monos (auto) Absolute Eos (auto) Absolute Basos (auto) Absolute Nucleated RBC Nucleated RBC % Sodium 134 Potassium 3.8 Chloride 98 L Carbon Dioxide 30 Anion Gap 6 BUN 9 Creatinine 0.70 Est GFR ( Amer) 137.5 Est GFR (Non-Af Amer) 106.9 BUN/Creatinine Ratio 12.9 Glucose 163 H POC Glucose (mg/dL) 183 H 323 H Calcium 9.0 Microbiology 05/28/16 14:40 Blood Venous Aerobic Blood Culture - Preliminary No Growth Day 3 05/28/16 14:40 Blood Venous Anaerobic Blood Culture - Final Klebsiella Pneumoniae 05/28/16 14:40 Blood Venous Blood Culture - Final 05/30/16 07:48 Blood Venous Aerobic Blood Culture - Preliminary No Growth Day 2 05/30/16 07:48 Blood Venous Anaerobic Blood Culture - Preliminary No Growth Day 2 05/30/16 07:48 Blood Venous Blood Culture - Final 05/30/16 06:11 Blood Venous Aerobic Blood Culture - Preliminary No Growth Day 2 05/30/16 06:11 Blood Venous Anaerobic Blood Culture - Preliminary No Growth Day 2 05/30/16 06:11 Blood Venous Blood Culture - Final 05/28/16 16:29 Sputum Gram Stain - Final 05/28/16 16:29 Sputum Sputum Culture - Final Normal Christi 05/28/16 16:25 Foot Right Gram Stain - Final 05/28/16 16:25 Foot Right Wound Culture - Final No Growth Day 2 05/28/16 15:58 Blood Venous Aerobic Blood Culture - Final Klebsiella Pneumoniae 05/28/16 15:58 Blood Venous Anaerobic Blood Culture - Final Klebsiella Pneumoniae 05/28/16 15:58 Blood Venous Blood Culture - Final 05/28/16 15:38 Nasal Influenza Types A,B Antigen (BAM) - Final Specimen received for Influenza A/B Molecular testing Assessment: 1. Klebsiella vascular device infection, picc removed and BC cleared 2. Right foot chronic osteomyelitis, diabetes related 3. Diabetes Plan: 1. continue cefepime until 06/02 then cipro 500 mg po BID x10 more days for GN intravasc infection that cleared rapidly and without sites of distant infection 2. vancomycin goal tr 15-20 while here, then back to Daptomycin daily as outpatient per Jae COLLAZO recs; I discussed case with Dr Ya there who would like to continue daptomycin as outpatient as previously Rx. Discussed with Maddison Booker [facility]OR[facility]
[2016-06-01] MEDS: Insulin GLARGINE(*) 1 UNITS UNIT SUBCUT SCH (21:24)
[2016-06-02] MEDS: Levothyroxine TAB* 75 MCG TAB PO SCH (05:49)
[2016-06-02] MEDS: Heparin VIAL(*) 5000 UNITS/ML VIAL (FIVE THOUSAND) SUBCUT SCH ×2 (05:49→13:05)
[2016-06-02 07:47] VITALS: BP 150/64
[2016-06-02] MEDS: Insulin LISPRO* 1 UNITS UNIT SUBCUT SCH ×4 (08:55→13:04)
[2016-06-02] MEDS: Lisinopril TAB* 10 MG PO SCH (08:57)
[2016-06-02] MEDS: Cefepime(*) 2 GM in NS 0.9% 50 ML* 50 ML IVPB SCH (08:57)
[2016-06-02] MEDS: Vancomycin(*) 1,000 MG in NS 0.9% 250 ML* 250 ML IVPB SCH (10:23)
--- NOTE | 2016-06-02 11:35 | PN ---
Subjective Date of Service: 06/02/16 Interval History: Patient seen and examined at bedside. Mr. Perez states, "I feel fine" and is anxious to go home. He denies fever/chills, chest pain, SOB, abd pain, n/v. No acute concerns expressed by patient or nursing. Wound care has rounded on patient and made plan for follow-up with patient. I spoke with Dr. Ya regarding the length of patient's treatment; she states his last day should be . Orders placed for patient to resume Daptomycin IV infusions tomorrow in the infusion center. Family History: Unchanged from Admission Social History: Unchanged from Admission Past Medical History: Unchanged from Admission Objective Active Medications: Acetaminophen (Tylenol Tab*) 650 mg PO Q4H PRN PRN Reason: FEVER/PAIN Last Admin: 05/29/16 16:06 Dose: 650 mg Dextrose (D50w Syringe 50 Ml*) 12.5 gm IV PUSH .FOR FS < 60 - SS PRN PRN Reason: FS < 60 Heparin Sodium (Porcine) (Heparin Vial(*)) 5,000 units SUBCUT Q8HR [facility] Last Admin: 06/02/16 05:49 Dose: 5,000 units Heparin Sodium (Porcine) (Heparin Flush Picc/Ml/Cvc(*)) 1 ml FLUSH 0600,1800 ISIDRO PRN Reason: Protocol Cefepime HCl 2 gm/ Sodium (Chloride) 50 mls @ 100 mls/hr IVPB Q12H ISIDRO Last Admin: 06/02/16 08:57 Dose: 100 mls/hr Vancomycin HCl 1,000 mg/ (Sodium Chloride) 250 mls @ 166.667 mls/hr IVPB Q8H [facility] Last Admin: 06/02/16 10:23 Dose: 166.667 mls/hr Insulin Glargine (Lantus(*)) 10 units SUBCUT Q24H ISIDRO Last Admin: 06/01/16 21:24 Dose: 10 units Insulin Human Lispro (Humalog*) 0 - 10 units SUBCUT AC ISIDRO PRN Reason: Protocol Last Admin: 06/02/16 08:55 Dose: 3 unit Insulin Human Lispro (Humalog*) 0 units SUBCUT AC ISIDRO PRN Reason: Protocol Last Admin: 06/02/16 08:56 Dose: 4 units Levothyroxine Sodium (Synthroid Tab*) 75 mcg PO DAILY@0600 [facility] Last Admin: 06/02/16 05:49 Dose: 75 mcg Lisinopril (Prinivil Tab*) 10 mg PO DAILY [facility] Last Admin: 06/02/16 08:57 Dose: 10 mg Pharmacy Consult (Vancomycin Per Pharmacy*) 1 note FOLLOW UP . PRN PRN Reason: PER PROTOCOL Vital Signs 06/01/16 06/01/16 06/01/16 15:15 20:00 23:53 Temperature 98.5 F 98.2 F Pulse Rate 66 57 Respiratory 18 16 20 Rate Blood Pressure 123/64 128/58 (mmHg) O2 Sat by Pulse 93 93 96 Oximetry 06/02/16 07:30 Temperature 97.3 F Pulse Rate 64 Respiratory 18 Rate Blood Pressure 150/64 (mmHg) O2 Sat by Pulse 95 Oximetry Oxygen Devices in Use Now: None Appearance: Older male patient, sitting up in bed, in NAD Eyes: PERRLA Ears/Nose/Mouth/Throat: Clear Oropharnyx, Mucous Membranes Moist Neck: NL Appearance and Movements; NL JVP Respiratory: Symmetrical Chest Expansion and Respiratory Effort, Clear to Auscultation Cardiovascular: NL Sounds; No Murmurs; No JVD, RRR Abdominal: NL Sounds; No Tenderness; No Distention Extremities: No Edema, No Clubbing, Cyanosis, - - s/p right transmetatarsal amputation Neurological: Alert and Oriented x 3 Lines/Tubes/Other Access: Clean, Dry and Intact PICC Line Nutrition: Taking PO's Result Diagrams: 06/01/16 06:24 06/01/16 06:24 Microbiology and Other Data: Microbiology 05/28/16 16:29 Gram Stain - Final Sputum Assess/Plan/Problems-Billing Assessment: Mr. iJ is a 85 yo male with a PMH of traumatic right transmetatarsal amputation in 1947, with hx of right osteomyelitis currently on IV abx as an outpt, hx of DM, HTN who presented 3/2 with complaints of rigor, confusion and fever. - Patient Problems (1) Bacterial sepsis Code(s): A41.9 - SEPSIS, UNSPECIFIED ORGANISM Comment: IV antibiotic treatment for Klebsiella complete, pt to start PO Ciprofloxacin BID for 10 day course. New PICC placed after most recent blood cx showed no growth. F/u with Dr. Mcdaniel. (2) Diabetes Code(s): E11.9 - TYPE 2 DIABETES MELLITUS WITHOUT COMPLICATIONS Comment: BG 140s-200s. Continue FSBG ACHS with Lispro SSI and increase carb coverage. Continue Lantus in evening. Consistent carbohydrate diet. Resume PO meds on discharge. steam tunnel feeder consult and outpatient teaching ordered. [facility] follow-up. (3) HTN (hypertension) Code(s): I10 - ESSENTIAL (PRIMARY) HYPERTENSION Comment: Normotensive. Continue lisinopril. (4) Hypothyroid Code(s): E03.9 - HYPOTHYROIDISM, UNSPECIFIED Comment: Continue levothyroxine. (5) DVT prophylaxis Code(s): HKC2128 - Comment: SQ heparin (6) Full code status Code(s): Z78.9 - OTHER SPECIFIED HEALTH STATUS Status and Disposition: Inpatient with bacteremia requiring IV abx. Plan for d/c to home with ID follow- up.
--- NOTE | 2016-06-03 10:14 | DS ---
MEDICINE DISCHARGE SUMMARY: DATE OF ADMISSION: 05/28/16 DATE OF DISCHARGE: 06/02/16 PROVIDER: Heidi Mendez NP. ATTENDING PHYSICIAN: Dr. Arcadio Infante* (as dictated by Heidi Mendez NP). CONSULTING PHYSICIAN: Dr. Víctor Reddy, Infectious Disease. PRIMARY CARE PHYSICIAN: Dr. Demetrio Whitehead, [facility]. PRIMARY DISCHARGE DIAGNOSIS: Sepsis secondary to Klebsiella bacteremia. SECONDARY DISCHARGE DIAGNOSES: 1. Chronic osteomyelitis of the right foot. 2. Diabetes mellitus type 2. 3. Hypothyroidism. 4. Hyperlipidemia. 5. Hypertension. 6. History of traumatic transmetatarsal amputation in 1947. 7. Osteoarthritis. 8. Obesity. MEDICATIONS AT DISCHARGE: 1. Pioglitazone 30 mg daily. 2. Levothyroxine 75 mcg daily. 3. Tylenol 650 mg b.i.d. p.r.n. 4. Metformin 1000 mg b.i.d. 5. Glipizide XL 10 mg b.i.d. 6. Sitagliptin 100 mg at 12 o'clock daily. 7. Lisinopril 10 mg daily. 8. Daptomycin infusion 450 mg IV daily until 06/08/16. 9. Heparin flushes for the PICC per protocol. 10. Ciprofloxacin 500 mg b.i.d. for a 10-day course. HOSPITAL COURSE OF STAY: For full details, please refer to the H and P provided by Jena Kramer NP, on 05/28/16. In summary, Mr. Perez is an 85-year-old gentleman who presented to the ER for evaluation after receiving his daptomycin infusion. The patient returned home and began to eat lunch when he developed a sudden onset of shaking and rigors. They returned to the ER for further evaluation and also noted the patient had some increased confusion. His initial labs were significant for a slightly elevated white count of 12.3, an ESR of 43, and a fever of 102.6. It was suspected that the patient had a PICC line infection; however, wound cultures were also taken from his right foot and he was started on cefepime and vancomycin. An ID consult was requested and the patient was seen by Dr. Reddy the following day on 05/29/16. At this point in time, it was noted that the patient has gram-negative rods growing in his blood cultures, which turned out to be Klebsiella. It was thought that this most likely represents an intravascular device infection and his PICC line was pulled. He was continued on cefepime and vancomycin to cover the gram-negative bob infection as well as his chronic osteomyelitis. Throughout the course of his stay, the patient remained afebrile and has improved, and has continued to deny any complaints. He had repeat cultures drawn on 05/30/16, which showed no growth. He was reevaluated by Dr. Reddy on 06/01/16, and a new PICC line was ordered. Dr. Reddy discussed the patient and the patient's case with the patient's primary Infectious Disease specialist, Dr. Ya, at [facility] in [place]. It was decided that the patient will continue his cefepime until 10/12 and then will be started on ciprofloxacin 500 mg b.i.d. x10 more days for gram- negative intravascular infection. Mr. Perez was also continued on vancomycin until discharge and he is to report to the inpatient setup tomorrow on 06/03/16 for his IV daptomycin infusion, which will continue until 06/08/[address] Ya. I did write these orders and gave them to the wound clinic staff. Weekly labs were also ordered as well as standard PICC line care. It was requested that lab work be sent to the patient's PCP Dr. Whitehead as well as Dr. Ya and that the wound clinic should call the patient's PCP prior to pulling the PICC line. At the time of discharge, the patient was afebrile. His white blood cell count has returned to normal. His vital signs are stable. We did have Wound Care come and see the patient as they do follow the patient as an outpatient. They recommended that the patient continue to wash his foot with soap and water and to cover it with gauze for protection. He should also wear an offloading shoe when up and walking. The family will call and schedule a followup appointment when discharged. The patient was also given a referral for diabetes education as his blood sugars have been somewhat elevated here. He will be restarted on his home medications. Diet teaching was provided. CONCERNS AT DISCHARGE: Mr. Perez will be discharged to home on 06/02/16 and should follow up with his PCP as scheduled on 06/04/16. They will call Dr. Ya, with the help of [facility], for followup. They also need to call the Wound Center for followup appointment, which the patient's spouse will take care of. DIET: Consistent carbohydrate diet. ACTIVITY: As tolerated. CONDITION: Stable. DISPOSITION: To home. TIME SPENT: Time spent on this discharge was approximately 40 minutes. Again, this is only a brief summary of the patient's hospital course of stay. For full details, please refer to the full medical record. If you have any further questions or need further assistance, please feel free to contact me at . HEIDI MENDEZ NP CC: Dr. Demetrio Whitehead* [id number]/CPS #: [id number] MTDD
== END 2016-06-02 16:10 | disposition home or self-care (01) | DRG 314 ==
LOC: ED 14:11 → MED 16:25 → OBSVTOIN 05-29 13:00
PROVIDERS: ADMIT Internal Medicine; ATTEND Internal Medicine
PROC: 02HV33Z Insertion of Infusion Device into Superior Vena Cava, Percutaneous Approach (ICD-10-PCS; principal; 2016-06-01)
DX: T82.7XXA Infection and inflammatory reaction due to other cardiac and vascular devices, implants and grafts, initial encounter (principal); A41.89 Other specified sepsis; E11.40 Type 2 diabetes mellitus with diabetic neuropathy, unspecified; M86.671 Other chronic osteomyelitis, right ankle and foot; B96.1 Klebsiella pneumoniae [K. pneumoniae] as the cause of diseases classified elsewhere; E03.9 Hypothyroidism, unspecified; E78.5 Hyperlipidemia, unspecified; I10 Essential (primary) hypertension; E11.621 Type 2 diabetes mellitus with foot ulcer; L97.519 Non-pressure chronic ulcer of other part of right foot with unspecified severity; M19.90 Unspecified osteoarthritis, unspecified site; E66.9 Obesity, unspecified; Z68.27 Body mass index [BMI] 27.0-27.9, adult; Z87.891 Personal history of nicotine dependence; Z89.411 Acquired absence of right great toe; Z79.1 Long term (current) use of non-steroidal anti-inflammatories (NSAID); Z79.84 Long term (current) use of oral hypoglycemic drugs; Z79.899 Other long term (current) drug therapy; Z83.3 Family history of diabetes mellitus
CPT/HCPCS: 36415; 36592; 71020; 80048; 80053; 80202; 81003; 81015; 83605; 84484; 85025; 85384; 85610; 85652; 85730; 86140; 87040; 87070; 87077; 87186; 87205; 87502; 93005; 96365; A9270-GY; C1751; G0378; J0692; J0878; J1644; J3370

== ENCOUNTER 2017-11-14 05:09 | Inpatient (IN) | payer MEDICARE, BC ==
[2017-11-14] MEDS ORDERED: NS 0.9% 1000 ML* 1,000 ML IV SCH (05:15)
[2017-11-14 05:54] LABS: ABS Basophils 0 10^3/ul (0-0.2); ABS Eosinophils 0 10^3/ul (0-0.6); ABS Lymphocytes 0.5 10^3/ul (1.0-4.8); ABS Monocytes 1.3 10^3/ul (0-0.8); ABS Neutrophils 11.7 10^3/ul (1.5-7.7); ABS Nucleated RBC 0 10^3/ul; Eosinophil % 0.2 % (0-6); Hematocrit 41 % (42-52); Hemoglobin 13.7 g/dl (14.0-18.0); Lymphocyte % 3.3 % (25-47); Mean Corpuscular HGB Conc 34 g/dl (31-36); Mean Corpuscular Hemoglobin 32 pg (27-31); Mean Corpuscular Volume 95 fL (80-94); Mean Platelet Volume 7.5 um3 (7.4-10.4); Nucleated Red Blood Cells % 0.3; Platelet Count 225 10^3/ul (150-450); Red Blood Count 4.31 10^6/ul (4.00-5.40); Red Cell Distribution Width 13 % (10.5-15); White Blood Count 13.6 10^3/ul (3.5-10.8)
[2017-11-14 06:04] LABS: EGFR Non-African American 78.6 (>60)
[2017-11-14 06:05] LABS: INR 0.98 (0.77-1.02)
--- NOTE | 2017-11-14 06:33 | ED ---
Neurological HPI - HPI Summary HPI Summary: This patient is an 87 year old M BIBA to [facility] with a chief complaint of L- sided facial droop that began PICK UP. Patient states that the droop is due to a recent dental procedure. The patient rates the pain 0/10 in severity. Symptoms aggravated by nothing. Symptoms alleviated by nothing. Patient reports he had a recent dental procedure on the left. Per EMS, they were called because of "possible stroke". - History of Current Complaint Stated Complaint: WEAKNESS Hx Obtained From: Patient Onset/Duration: Sudden Onset, Still Present Timing: Constant Onset Severity: Mild Current Severity: Mild Pain Intensity: 0 Pain Scale Used: 0-10 Numeric Aggravating: Nothing Alleviating: Nothing - Additional Pertinent History Primary Care Physician: [id number] - Allergy/Home Medications Allergies/Adverse Reactions: Allergies Allergy/AdvReac Type Severity Reaction Status Date / Time No Known Allergies Allergy Verified 08/07/16 16:02 PMH/Surg Hx/FS Hx/Imm Hx Previously Healthy: No Endocrine/Hematology History: Reports: Hx Diabetes Cardiovascular History: Denies: Hx Hypertension, Hx Pacemaker/ICD Respiratory History: Reports: Other Respiratory Problems/Disorders - Atelectesis History: Denies: Hx Dialysis, Hx Renal Disease Musculoskeletal History: Reports: Hx Arthritis, Other Musculoskeletal History - 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 Sensory History: Denies: Hx Hearing Aid Psychiatric History: Denies: Hx Panic Disorder - Surgical History Surgery Procedure, Year, and Place: skin graft; appy; dislocation of the metatarsal right foot; Infectious Disease History: No Infectious Disease History: Reports: History Other Infectious Disease Denies: Traveled Outside the [place] in Last 30 Days - Family History Known Family History: Positive: Diabetes - Social History Occupation: Retired Lives: With Family Alcohol Use: Occasionally Hx Substance Use: No Substance Use Type: Reports: None Hx Tobacco Use: No Smoking Status (MU): Never Smoked Tobacco Type: Cigarettes Review of Systems All Other Systems Reviewed And Are Negative: No - Comments Additional Review of Systems Comments: Patient unable to give full history. Physical Exam Vital Signs On Initial Exam: Initial Vitals Temp Pulse Resp BP Pulse Ox 97.8 F 96 20 117/62 95 11/14/17 05:11 11/14/17 05:11 11/14/17 05:11 11/14/17 05:11 11/14/17 05:11 Diagnostics - Vital Signs Vital Signs Temp Pulse Resp BP Pulse Ox 11/14/17 05:11 97.8 F 96 20 117/62 95 - Laboratory Lab Results: Lab Results 11/14/17 11/14/17 11/14/17 Range/Units 05:30 05:30 05:30 WBC 13.6 H (3.5-10.8) 10^3/ul RBC 4.31 (4.00-5.40) 10^6/ul Hgb 13.7 L (14.0-18.0) g/dl Hct 41 L (42-52) % MCV 95 H (80-94) fL MCH 32 H (27-31) pg MCHC 34 (31-36) g/dl RDW 13 (10.5-15) % Plt Count 225 (150-450) 10^3/ul MPV 7.5 (7.4-10.4) um3 Neut % (Auto) 86.4 H (38-83) % Lymph % (Auto) 3.3 L (25-47) % [place] % (Auto) 9.8 H (0-7) % Eos % (Auto) 0.2 (0-6) % Baso % (Auto) 0.3 (0-2) % Absolute Neuts (auto) 11.7 H (1.5-7.7) 10^3/ul Absolute Lymphs (auto) 0.5 L (1.0-4.8) 10^3/ul Absolute Monos (auto) 1.3 H (0-0.8) 10^3/ul Absolute Eos (auto) 0 (0-0.6) 10^3/ul Absolute Basos (auto) 0 (0-0.2) 10^3/ul Absolute Nucleated RBC 0 10^3/ul Nucleated RBC % 0.3 INR (Anticoag Therapy) 0.98 (0.77-1.02) APTT 30.1 (26.0-36.3) seconds Sodium 132 L (135-145) mmol/L Potassium 4.0 (3.5-5.0) mmol/L Chloride 96 L (101-111) mmol/L Carbon Dioxide 27 (22-32) mmol/L Anion Gap 9 (2-11) mmol/L BUN 17 (6-24) mg/dL Creatinine 0.91 (0.67-1.17) mg/dL Est GFR ( Amer) 95.1 (>60) Est GFR (Non-Af Amer) 78.6 (>60) BUN/Creatinine Ratio 18.7 (8-20) Glucose 328 H (70-100) mg/dL POC Glucose (mg/dL) (70-100) mg/dL Calcium 9.2 (8.6-10.3) mg/dL Total Bilirubin 1.40 H (0.2-1.0) mg/dL AST 18 (13-39) U/L ALT 18 (7-52) U/L Alkaline Phosphatase 69 (34-104) U/L Total Protein 6.8 (6.4-8.9) g/dL Albumin 3.7 (3.2-5.2) g/dL Globulin 3.1 (2-4) g/dL Albumin/Globulin Ratio 1.2 (1-3) 11/14/17 Range/Units 05:49 WBC (3.5-10.8) 10^3/ul RBC (4.00-5.40) 10^6/ul Hgb (14.0-18.0) g/dl Hct (42-52) % MCV (80-94) fL MCH (27-31) pg MCHC (31-36) g/dl RDW (10.5-15) % Plt Count (150-450) 10^3/ul MPV (7.4-10.4) um3 Neut % (Auto) (38-83) % Lymph % (Auto) (25-47) % [place] % (Auto) (0-7) % Eos % (Auto) (0-6) % Baso % (Auto) (0-2) % Absolute Neuts (auto) (1.5-7.7) 10^3/ul Absolute Lymphs (auto) (1.0-4.8) 10^3/ul Absolute Monos (auto) (0-0.8) 10^3/ul Absolute Eos (auto) (0-0.6) 10^3/ul Absolute Basos (auto) (0-0.2) 10^3/ul Absolute Nucleated RBC 10^3/ul Nucleated RBC % INR (Anticoag Therapy) (0.77-1.02) APTT (26.0-36.3) seconds Sodium (135-145) mmol/L Potassium (3.5-5.0) mmol/L Chloride (101-111) mmol/L Carbon Dioxide (22-32) mmol/L Anion Gap (2-11) mmol/L BUN (6-24) mg/dL Creatinine (0.67-1.17) mg/dL Est GFR ( Amer) (>60) Est GFR (Non-Af Amer) (>60) BUN/Creatinine Ratio (8-20) Glucose (70-100) mg/dL POC Glucose (mg/dL) 330 H (70-100) mg/dL Calcium (8.6-10.3) mg/dL Total Bilirubin (0.2-1.0) mg/dL AST (13-39) U/L ALT (7-52) U/L Alkaline Phosphatase (34-104) U/L Total Protein (6.4-8.9) g/dL Albumin (3.2-5.2) g/dL Globulin (2-4) g/dL Albumin/Globulin Ratio (1-3) Result Diagrams: 11/14/17 05:30 11/14/17 05:30 Lab Statement: Any lab studies that have been ordered have been reviewed, and results considered in the medical decision making process. - Radiology CXR Radiology Interpretation Completed By: ED Physician - CXR reveals, per ED physician, no acute disease. - CT Brain CT CT Interpretation Completed By: Radiologist - Brain CT reveals, per radiologist , no acute intracranial pathology. ED physician has reviewed this radiology report. - EKG 0548 Cardiac Rate: NL EKG Rhythm: Sinus Rhythm - [address] Segment: Non-Specific Ectopy: None Re-Evaluation - Re-Evaluation First Eval Re-Evaluation Time: 07:02 Change: Unchanged Comment: Discussed results and plan of care with pt Course/Dx - Course Course Of Treatment: This patient is an 87 year old M BIBA to [facility] with a chief complaint of L-sided facial droop that began PICK UP. Patient states that the droop is due to a recent dental procedure. Physical Exam Findings: Left facial droop. An EKG reveals sinus rhythm at 87 BPM and non-specific ST-T wave changes. CXR reveals, per ED physician, no acute disease. Brain CT reveals, per radiologist, no acute intracranial pathology. Bloodwork and UA obtained. In the ED course the patient was given fluids. Patient care was discussed with Dr. Aguirre, who accepts patient for admission. Dr. Aguirre understands patients CTA is pending. Patient will be admitted with a diagnosis of facial droop and rule out stroke. Patient is agreeable with this plan. - Diagnoses Provider Diagnoses: Fall, Facial droop - Physician Notifications Discussed Care Of Patient With: All Aguirre Time Discussed With Above Provider: 07:21 Instructed by Provider To: Other - Accepts patient for admission. Dr. Aguirre understands patients CTA is pending. Discharge - Sign-Out/Discharge Documenting (check all that apply): Patient Departure - ADMIT - Discharge Plan Condition: Stable Disposition: ADMITTED TO [facility] Referrals: Demetrio Whitehead MD [Primary Care Provider] - Attestations Scribe Attestation: This is tracey Talamantes documenting for attending Ana Solitario MD. User Type: Provider with Scribe Provider Attestation: The documentation recorded by the scribe accurately reflects the service I personally performed and the decisions made by me.
[2017-11-14] MEDS ORDERED: Iodixanol* (CONTRAST) 320 MG/ML 100 ML SDV IV ONE (07:08)
--- NOTE | 2017-11-14 07:43 | RAD ---
HISTORY: left facial droop COMPARISONS: Head CT dated November 14, 2017 TECHNIQUE: Multiple contiguous axial CT scans were obtained of the head and neck after the administration of nonionic intravenous contrast timed to the systemic arterial phase of contrast enhancement. Coronal and sagittal multiplanar reformations are submitted for review. Multiple 3-D maximum intensity projection reconstructions are also submitted for review. FINDINGS: Evaluation is limited by suboptimal contrast opacification. The attenuation of the aorta at the aortic arch is less than 200 Hounsfield units.. The study is considered a borderline but diagnostic quality CTA NECK: AORTIC ARCH: There is a bovine configuration, with the left common carotid artery originating from the brachiocephalic trunk. There is no ostial or proximal stenosis of the cephalic great vessels. There is atherosclerosis of the proximal aorta. RIGHT VERTEBRAL ARTERY: The right vertebral artery is patent along its course, without stenosis. LEFT VERTEBRAL ARTERY: There is moderate stenosis of the left vertebral basilar junction. DOMINANCE: The right vertebral artery is dominant. RIGHT COMMON CAROTID ARTERY: The right common carotid artery is patent. The right carotid bifurcation occurs at C3-C4 RIGHT INTERNAL CAROTID ARTERY: There is atheromatous disease of the right carotid bifurcation, without right internal carotid artery stenosis by NASCET criteria. RIGHT EXTERNAL CAROTID ARTERY: The right external carotid artery is unremarkable. LEFT COMMON CAROTID ARTERY: The left common carotid artery is patent. The left carotid bifurcation occurs at C4 LEFT INTERNAL CAROTID ARTERY: There is atheromatous disease of the left carotid bifurcation, without left internal carotid artery stenosis by NASCET criteria. LEFT EXTERNAL CAROTID ARTERY: The left external carotid artery is unremarkable. VENOUS CIRCULATION: The venous system is unremarkable. SALIVARY GLANDS: The parotid glands, submandibular glands, sublingual glands are normal. NASAL CAVITY/NASOPHARYNX: The nasal cavity and nasopharynx are normal. ORAL CAVITY/OROPHARYNX: The oral cavity is obscured by streak artifact from dental amalgam. The visualized oral cavity and oropharynx are unremarkable. LARYNGEAL APPARATUS/HYPOPHARYNX: The laryngeal apparatus and hypopharynx are normal. UPPER AIRWAY/UPPER ESOPHAGUS: The visualized upper airway and esophagus are normal. LUNG APICES: The lung apices are clear. THYROID GLAND: The thyroid gland is normal. LYMPH NODES: There is no lymphadenopathy by size criteria. BONES AND SOFT TISSUES: Degenerative changes are noted along the spine. CTA HEAD: INTRACRANIAL CIRCULATION: As noted above, there is moderate stenosis of the left vertebrobasilar junction. Elsewhere, there is no aneurysm, vascular malformation, occlusion, or stenosis of the visualized intracranial circulation. The anterior communicating artery complex is clear. Bilateral posterior communicating arteries are identified. VENOUS CIRCULATION: The venous system is unremarkable. PERFUSION: There is no obvious parenchymal perfusion deficit. HEMORRHAGE/INFARCT: There is no hemorrhage or acute infarct. MASSES/SHIFT: There is no mass or shift. EXTRA-AXIAL SPACES: There are no extra-axial fluid collections. SULCI AND VENTRICLES: There is diffuse and proportional enlargement of the sulci and ventricles. CEREBRUM: There is an age-indeterminate lacunar infarct of the left basal ganglia. BRAINSTEM: There are no focal parenchymal abnormalities. CEREBELLUM: There are no focal parenchymal abnormalities. PARANASAL SINUSES: The paranasal sinuses are clear. ORBITS: The orbits are unremarkable. BONES AND SOFT TISSUE: No bone or soft tissue abnormalities are noted. OTHER: There is no abnormal enhancement. IMPRESSION: 1. ATHEROSCLEROSIS. 2. NO INTERNAL CAROTID ARTERY STENOSIS BY NASCET CRITERIA. 3. 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 4. ELSEWHERE, THERE IS NO ANEURYSM, VASCULAR MALFORMATION, OCCLUSION, OR STENOSIS OF THE VISUALIZED INTRACRANIAL CIRCULATION. CPT II Codes: 3100F
--- NOTE | 2017-11-14 07:46 | RAD ---
HISTORY: stroke COMPARISONS: August 09, 2017 VIEWS: 1: frontal portable view of the chest at 5:55 AM FINDINGS: LINES AND TUBES: None. CARDIOMEDIASTINAL SILHOUETTE: The cardiomediastinal silhouette is normal for portable technique. PLEURA: The costophrenic angles are sharp. No pleural abnormalities are noted. LUNG PARENCHYMA: The lungs are clear. ABDOMEN: The upper abdomen is clear. There is no subphrenic gas. BONES AND SOFT TISSUES: Degenerative changes are noted along the spine. IMPRESSION: NO ACTIVE CARDIOPULMONARY DISEASE. R1
[2017-11-14 08:46] LABS: Urine Appearance Clear; Urine Blood Negative (Negative); Urine Color Yellow; Urine Ketones 1+ (Negative); Urine Protein 2+(100 mg/dL) (Negative); Urine Red Blood Cell Absent (Absent); Urine Urobilinogen Negative (Negative); Urine White Blood Cell Absent (Absent)
[2017-11-14] MEDS ORDERED: Dextrose 50% Syringe 50 ML* 25 GM/50 ML SYRINGE IV PUSH PRN (09:31)
--- NOTE | 2017-11-14 09:35 | ED ---
Progress - Progress Note Progress Note: This is scribe Pelon Amador documenting for attending Gómez Olivera. Patient was originally signed out to Dr. Olivera via Dr. Solitario, however, patient was instead admitted via Dr. Clark. CTA HEAD/NECK: FINDINGS: Evaluation is limited by suboptimal contrast opacification. The attenuation of the aorta at the aortic arch is less than 200 Hounsfield units.. The study is considered a borderline but diagnostic quality CTA NECK: AORTIC ARCH: There is a bovine configuration, with the left common carotid artery originating from the brachiocephalic trunk. There is no ostial or proximal stenosis of the cephalic great vessels. There is atherosclerosis of the proximal aorta. RIGHT VERTEBRAL ARTERY: The right vertebral artery is patent along its course, without stenosis. LEFT VERTEBRAL ARTERY: There is moderate stenosis of the left vertebral basilar junction. DOMINANCE: The right vertebral artery is dominant. RIGHT COMMON CAROTID ARTERY: The right common carotid artery is patent. The right carotid bifurcation occurs at C3-C4 RIGHT INTERNAL CAROTID ARTERY: There is atheromatous disease of the right carotid bifurcation, without right internal carotid artery stenosis by NASCET criteria. RIGHT EXTERNAL CAROTID ARTERY: The right external carotid artery is unremarkable. LEFT COMMON CAROTID ARTERY: The left common carotid artery is patent. The left carotid bifurcation occurs at C4 LEFT INTERNAL CAROTID ARTERY: There is atheromatous disease of the left carotid bifurcation, without left internal carotid artery stenosis by NASCET criteria. LEFT EXTERNAL CAROTID ARTERY: The left external carotid artery is unremarkable. VENOUS CIRCULATION: The venous system is unremarkable. SALIVARY GLANDS: The parotid glands, submandibular glands, sublingual glands are normal. NASAL CAVITY/NASOPHARYNX: The nasal cavity and nasopharynx are normal. ORAL CAVITY/OROPHARYNX: The oral cavity is obscured by streak artifact from dental amalgam. The visualized oral cavity and oropharynx are unremarkable. LARYNGEAL APPARATUS/HYPOPHARYNX: The laryngeal apparatus and hypopharynx are normal. UPPER AIRWAY/UPPER ESOPHAGUS: The visualized upper airway and esophagus are normal. LUNG APICES: The lung apices are clear. ED PHYSICIAN REVIEWED THIS RADIOLOGY REPORT. BRAIN MRI IMPRESSION: 1. DIFFUSE INVOLUTIONAL CHANGE. 2. NO RESTRICTED DIFFUSION TO SUGGEST ACUTE INFARCT. ED PHYSICIAN REVIEWED THIS RADIOLOGY REPORT. I, Dr. Olivera, personally performed the services described in this documentation as scribed in my presence and it is both accurate and complete. 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 Patient states that the droop is due to a recent dental procedure. Physical Exam Findings: Left facial droop. An EKG reveals sinus rhythm at 87 BPM and non-specific ST-T wave changes. CXR reveals, per ED physician, no acute disease. Brain CT reveals, per radiologist, no acute intracranial pathology. Bloodwork and UA obtained. In the ED course the patient was given fluids. Patient care was discussed with Dr. Aguirre, who accepts patient for admission. Dr. Aguirre understands patients CTA is pending. Patient will be admitted with a diagnosis of facial droop and rule out stroke. Patient is agreeable with this plan. - Diagnoses Provider Diagnoses: Fall, Facial droop - Provider Notifications Discussed Care Of Patient With: All Aguirre Time Discussed With Above Provider: 07:21 Instructed by Provider To: Other - Accepts patient for admission. Dr. Aguirre understands patients CTA is pending. Discharge - Sign-Out/Discharge Documenting (check all that apply): Patient Departure - DISCHARGE - Discharge Plan Condition: Stable Disposition: ADMITTED TO [facility]
--- NOTE | 2017-11-14 10:41 | RAD ---
HISTORY: TIA/CVA with left nasolabial blunting COMPARISONS: Head CT dated November 14, 2012 TECHNIQUE: The following sequences were obtained of the head: Sagittal T1-weighted images, axial T2-weighted images, axial FLAIR images, axial susceptibility weighted images, axial T1-weighted images. Additionally, axial diffusion-weighted images were obtained with calculated apparent diffusion coefficients. FINDINGS: The study is limited by patient motion artifact. HEMORRHAGE/INFARCT: There is no hemorrhage or acute infarct. MASSES/SHIFT: There is no mass or shift. EXTRA-AXIAL SPACES/MENINGES: There are no extra-axial fluid collections. SULCI AND VENTRICLES: There is diffuse and proportional enlargement of the sulci and ventricles. CEREBRUM: There is a chronic lacunar infarct versus dilated perivascular space of the left basal ganglia. There is mild elevated T2/FLAIR signal within the periventricular and subcortical white matter. BRAINSTEM: There are no focal parenchymal abnormalities. CEREBELLUM: There are no focal parenchymal abnormalities. The cerebellar tonsils are normal in size and position. SELLA: There is a partially in the sella. PINEAL: The pineal region is clear. CP ANGLE/TEMPORAL BONES: The labyrinthine structures are grossly normal. VESSELS: Normal flow-voids are noted within the visualized vertebral vasculature. DIFFUSION ABNORMALITIES: There are no diffusion abnormalities. PARANASAL SINUSES/MASTOIDS: The paranasal sinuses are clear. ORBITS: The orbits are unremarkable. BONES AND SOFT TISSUE: No bone or soft tissue abnormalities are noted. OTHER: None IMPRESSION: 1. DIFFUSE INVOLUTIONAL CHANGE. 2. NO RESTRICTED DIFFUSION TO SUGGEST ACUTE INFARCT.
[2017-11-14] MEDS: Enoxaparin(*) 30 MG/0.3 ML SYR SUBCUT SCH (11:55)
[2017-11-14] MEDS: Atorvastatin* 10 MG TAB PO SCH (11:55)
[2017-11-14] MEDS: Aspirin 81 mg CHEW TAB* 81 MG TAB.CHEW PO SCH (11:55)
--- NOTE | 2017-11-14 12:31 | HP ---
HISTORY AND PHYSICAL: DATE OF ADMISSION: 11/14/17 CHIEF COMPLAINT/REASON FOR ADMISSION: Diaphoresis and possible CVA symptoms. HISTORY OF PRESENT ILLNESS/HOSPITAL COURSE: Mr. Perez is an 87-year-old gentleman with history of type 2 diabetes mellitus, hypothyroidism and hypertension who lives at [facility] who mentioned that he has had a recent dental procedure yesterday; however, was unable to explain the details of what was done and hence I have called [facility] and the charge nurse at [phone]. Unfortunately, they are unable to provide any additional information. They did confirm, however, that the patient did have a dental procedure done. 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 However, the charge nurse herself was not sure whether it was actually penicillin or penicillin derivative that was prescribed. He was supposed to have to have gotten a dose of antibiotic at around 12:30 yesterday. A few hours prior to admission, the charge nurse sent the patient to our facility for a suspicion of a possible CVA-like symptom where she noted diaphoresis and drooling. When the patient arrived in the ED, he had a noticeable left nasolabial blunting, however, it is unclear from the history whether this is something new or whether this was the symptom of concern from [facility] that made them think he is having a CVA. He does not have any history of previous CVA from previous records and the patient himself is a poor historian. The patient mentioned that he tripped over his and denied any prodromal symptoms prior to his fall and he mentioned that he hit the side of the bed instead of the floor and currently mentions that he does not feel any pain anywhere else. PAST MEDICAL HISTORY: Past medical and surgical history includes: 1. Type 2 diabetes mellitus. 2. Obesity. 3. Hypothyroidism. 4. Hyperlipidemia. 5. Osteoarthritis. 6. Hypertension. 7. Status post skin graft x2 on the right foot secondary to history of osteomyelitis. 8. Status post appendectomy. 9. 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 MEDICATIONS: 1. Synthroid. 2. Metformin. 3. Glipizide. 4. Sitagliptin or Januvia. 5. Pioglitazone. 6. Lisinopril. ALLERGIES: No known drug allergies. FAMILY HISTORY: No family history of coronary artery disease or cancer. The patient's mother had history of diabetes mellitus. SOCIAL HISTORY: The patient is a former smoker, he quit smoking in 1971 and occasionally drinks alcoholic beverages. He denies any recreational drug use. He is a retired business intelligence architect. He is and lives in an independent living facility with his at [facility]. His , Shereen Perez will be his surrogate decision maker, who unfortunately is also being admitted to our facility due to a fall she sustained while supposedly helping her and she herself is legally blind according to [facility] nurses. REVIEW OF SYSTEMS: On review of systems, he mentions that he has been weak for a couple of days, but denies any myalgias or arthralgias, denied any headaches, dizziness, any recent fevers or chills despite what was mentioned in history. Denied any increased cough, no sputum production, abdominal pain, diarrhea, constipation, pain and/or increased frequency on urination, throat pain or new skin lesions. The rest of the 14-point review of systems are otherwise unremarkable. PHYSICAL EXAMINATION GENERAL APPEARANCE: The patient is awake, responds to appropriately to questions, not oriented x3, not in acute distress. VITAL SIGNS: Shows the most recent vital signs of records with blood pressure of 171/94, 20 per minute respiratory rate, heart rate 87 per minute, saturating at 94% on room air. HEENT: Normocephalic, atraumatic. PERRLA. Extraocular muscles intact. Negative for icterus. Moist oral mucosa. Negative throat erythema. NECK: Soft, supple with no cervical lymphadenopathy. No JVD. CHEST: Clear to auscultation bilaterally. Good air entry. No wheezes, rales or rhonchi. HEART: S1 and S2 within normal limits. Regular rate and rhythm. No murmurs, rubs or gallops. ABDOMEN: Soft, nondistended, nontender. Normoactive bowel sounds x4 quadrants. EXTREMITIES: No cyanosis, clubbing nor edema. PSYCHIATRIC: No active psychosis, depression, suicidal, nor homicidal ideation. SKIN: Warm to touch. NEUROLOGIC: Blunting of the left nasolabial fold. LABORATORY DATA: Most recent and pertinent laboratories include CBC with white count of 13.6, H and H of 13.7 and 41, platelet count is normal, INR is normal. Sodium and potassium of 132 and 4.0, BUN and creatinine 17 and 0.91. Urinalysis with a specific gravity of 1.060 with negative wbc's. Chest x-ray shows no acute disease and brain CT results official is still currently pending but was reported to be negative for any intracranial bleed. CT angiography of the head reveals no internal carotid stenosis with moderate stenosis of the left ventricle, negative for basilar junction and no aneurysm. EKG shows normal sinus rhythm, 87 beats per minute with no ST segment changes. ASSESSMENT AND PLAN: 1. Question of left facial droop. It is unclear whether this is a new finding or not; however, we will place the patient on aspirin at 81 mg p.o. daily as well as atorvastatin at low dose at 10 mg and we will also check fasting lipid levels in a.m. He did have a history of hyperlipidemia in the past, however, it is unclear why he is not currently on any statins; likely secondary due to his advanced age. We will place pt on telemetry and begin trending troponins. We will obtain 2D echo and MRI of head in AM 2. Mild leukocytosis, possibly due to reactive leukocytosis versus an oral infection S/P unidentified dental procedure where he was given and prescribed penicillin for starting yesterday. At this time, we will await for the official head CT results to see whether they will comment on any dental abnormalities and in the meantime will place patient on Augmentin after blood cultures are drawn for cultures. 3. Diabetes mellitus, uncontrolled. We will hold all p.o. diabetes medications and we will place the patient on insulin sliding scale at a higher dosage than required for his BMI given his fingersticks are in the 300s at this time. We will continue watchful waiting. 4. Tooth procedure recently done: Please see above discussion. We will await official CT of the head result as well as we will place the patient on Augmentin. 5. Hypertension. We will continue lisinopril and we will place patient on p.r.n. Lopressor with appropriate holding orders. 6. DVT prophylaxis. We will place the patient on low-dose Lovenox. 7. Disposition. For PT eval. [id number]/CPS #: [id number]
[2017-11-14] MEDS: Insulin LISPRO* 1 UNITS UNIT SUBCUT SCH ×3 (12:48→22:45)
[2017-11-14] MEDS ORDERED: Acetaminophen TAB* 325 MG PO PRN (15:27)
[2017-11-14] MEDS ORDERED: Metoprolol Tartrate IV* 1 MG/ML 5 ML VIAL IV PRN (15:33)
[2017-11-14] MEDS ORDERED: Vancomycin per Pharmacy* NOTE FOLLOW UP SCH (16:00)
[2017-11-14] MEDS ORDERED: Vancomycin(*) 1,500 MG in NS 0.9% 500 ML* 500 ML IVPB ONE (16:00)
[2017-11-14] MEDS ORDERED: Piperacillin/Tazobac ADVAN(*) 3.375 GM in NS 0.9% 100 ML* 100 ML IVPB ONE (16:00)
[2017-11-14] MEDS ORDERED: Zosyn per Pharmacy* NOTE FOLLOW UP SCH (16:00)
[2017-11-14] MEDS: NS 0.9% 1000 ML* 1,000 ML IV SCH (16:05)
[2017-11-14] MEDS ORDERED: hydrALAZINE IV* 20 MG/ML VIAL IV SLOW PU PRN (16:36)
[2017-11-14] MEDS ORDERED: Haloperidol INJ IV/IM* 5 MG/ML AMP IV SLOW PU PRN (17:19)
--- NOTE | 2017-11-14 17:27 | RAD ---
HISTORY: Repeat due to sudden MS change with HTN COMPARISONS: Head CT dated November 14, 2017 at 5:20 AM, MRI dated November 14, 2017 TECHNIQUE: Multiple contiguous axial CT scans were obtained of the head without intravenous contrast. FINDINGS: The study is limited by patient motion artifact. HEMORRHAGE/INFARCT: There is no hemorrhage or acute infarct. MASSES/SHIFT: There is no mass or shift. EXTRA-AXIAL SPACES: There are no extra-axial fluid collections. SULCI AND VENTRICLES: The sulci and ventricles are normal in size and position for the patient's stated age. CEREBRUM: There is hypoattenuation of the periventricular and subcortical white matter. Again noted is a chronic lacunar infarct versus dilated perivascular space of the left basal ganglia. BRAINSTEM: There are no focal parenchymal abnormalities. CEREBELLUM: There are no focal parenchymal abnormalities. VESSELS: The vessels are grossly normal. PARANASAL SINUSES: The paranasal sinuses are clear. ORBITS: The orbits are unremarkable. BONES AND SOFT TISSUE: No bone or soft tissue abnormalities are noted. OTHER: None IMPRESSION: NO ACUTE INTRACRANIAL PATHOLOGY.
[2017-11-14] MEDS: ZOSYN 3.375 GM Q8H per EXTENDED INFUSION IVPB SCH ×2 (20:43)
[2017-11-14] MEDS ORDERED: Amoxicillin/Clavulanate TAB* 875 MG PO SCH (21:00)
[2017-11-14] MEDS ORDERED: NS 0.9% 100 ML* 100 ML ONE (22:15)
[2017-11-15] MEDS: Vancomycin(*) 1,000 MG in NS 0.9% 250 ML* 250 ML IVPB SCH ×2 (01:17→09:21)
[2017-11-15] MEDS: ZOSYN 3.375 GM Q8H per EXTENDED INFUSION IVPB SCH ×6 (05:01→16:28)
[2017-11-15] MEDS ORDERED: NS 0.9% 100 ML* 100 ML ONE (06:12)
[2017-11-15] MEDS: Levothyroxine TAB* 75 MCG TAB PO SCH (06:20)
[2017-11-15 06:29] LABS: Hematocrit 39 % (42-52); Hemoglobin 13.2 g/dl (14.0-18.0); Mean Corpuscular HGB Conc 34 g/dl (31-36); Mean Corpuscular Hemoglobin 32 pg (27-31); Mean Corpuscular Volume 94 fL (80-94); Mean Platelet Volume 7.1 um3 (7.4-10.4); Platelet Count 188 10^3/ul (150-450); Red Blood Count 4.11 10^6/ul (4.00-5.40); Red Cell Distribution Width 14 % (10.5-15); White Blood Count 8.2 10^3/ul (3.5-10.8)
[2017-11-15 06:54] LABS: EGFR Non-African American 74.8 (>60)
[2017-11-15] MEDS ORDERED: Lisinopril TAB* 10 MG PO SCH (09:00)
[2017-11-15] MEDS: Insulin LISPRO* 1 UNITS UNIT SUBCUT SCH ×4 (09:20→22:55)
[2017-11-15] MEDS: Aspirin 81 mg CHEW TAB* 81 MG TAB.CHEW PO SCH (09:20)
[2017-11-15] MEDS: Atorvastatin* 10 MG TAB PO SCH (09:20)
[2017-11-15] MEDS: Enoxaparin(*) 30 MG/0.3 ML SYR SUBCUT SCH (09:20)
[2017-11-15] MEDS ORDERED: Perflutren Lipid Microsphere* 3 ML VIAL ONE (13:38)
--- NOTE | 2017-11-15 13:47 | RAD ---
EXAM: CT Head Without Intravenous Contrast CLINICAL HISTORY: 87 years old, male; Signs and symptoms; Weakness, facial TECHNIQUE: Axial computed tomography images of the head/brain without intravenous contrast. COMPARISON: BRAIN WO CT BRAIN WO 2015-05-27 13:06 FINDINGS: Brain: Generalized parenchymal atrophy and evidence of microvascular ischemic disease involving periventricular and subcortical white matter bilaterally. Stable lacunar infarct in the left basal ganglia. No hemorrhage. Ventricles: Unremarkable. No ventriculomegaly. Bones/joints: Unremarkable. No acute fracture. Soft tissues: Unremarkable. Sinuses: Unremarkable as visualized. No acute sinusitis. Mastoid air cells: Unremarkable as visualized. No mastoid effusion. IMPRESSION: No acute intracranial pathology. Final read addendum: There is no available documentation of communication between the ordering provider and the interpreting provider at the time of signing off. R0 MTDD
--- NOTE | 2017-11-15 15:33 | ECHO ---
Patient: NURY CARDONA [facility] Rec#: [id number] : 1930 Date: 11/15/2017 Age: 87y Height: 193 cm / 76.0 in Weight: 105 kg / 231.4 lbs Sex: M BSA: 2.36 Room#: [facility] Admit Date#: 11/14/2017 Type: Inpatient Referring: All Aguirre Reading: Bryan Solano MD Deputy County Clerk: Roula Talley,LOISCS,RDMS CC: Demetrio Whitehead MD Transthoracic Echocardiogram Indication: TIA BP: 110/60 HR: 76 Rhythm: NSR Findings History: DM, HLD, HTN Technical Comments: The study is technically limited due to poor acoustic windows. Left Ventricle: The left ventricular chamber size is normal. Moderate concentric left ventricular hypertrophy is observed. There is a prominent septal knuckle. Global left ventricular wall motion and contractility are within normal limits. There is normal left ventricular systolic function. The estimated ejection fraction is 55-60%. There is an E to A reversal in the mitral valve flow pattern suggestive of diastolic dysfunction. Left Atrium: The left atrium is mild to moderately dilated. Right Ventricle: The right ventricle wall thickness is mildly increased. The right ventricle is mildly dilated. The right ventricular global systolic function is normal. Right Atrium: The right atrium is mildly dilated. Aortic Valve: The aortic valve is trileaflet. The aortic valve leaflets are moderately thickened. Systolic excursion of the aortic valve cusps is reduced. There is no evidence of aortic regurgitation. There is moderate aortic stenosis. The mean gradient of the aortic valve is 19 mmHg. The aortic valve area, by VTI's, is calculated at 1.3 cm2. Mitral Valve: The mitral valve leaflets are mildly thickened. There is no evidence of mitral regurgitation. There is no evidence of mitral stenosis. Tricuspid Valve: The tricuspid valve leaflets are normal. There is no evidence of tricuspid valve regurgitation. Unable to estimate the right ventricular systolic pressure. Pulmonic Valve: The pulmonic valve appears normal. There is no evidence of pulmonic regurgitation. Pericardium: There is no significant pericardial effusion. Aorta: There is no dilatation of the ascending aorta. The aortic arch is not well visualized. There is mild dilatation of the aortic root. Pulmonary Artery: The main pulmonary artery is not well visualized. Venous: The inferior vena cava is dilated. There is a greater than 50% respiratory change in the inferior vena cava dimension. Contrast: Definity was used to optimize study. A total of 3 ml was used Summary: There was not any prior study for comparison. Conclusions Moderate concentric left ventricular hypertrophy is observed. Global left ventricular wall motion and contractility are within normal limits. There is normal left ventricular systolic function. The estimated ejection fraction is 55-60%. The right ventricular global systolic function is normal. The aortic valve leaflets are moderately thickened. There is moderate aortic stenosis. The mean gradient of the aortic valve is 19 mmHg. There is no evidence of aortic regurgitation. There is no evidence of mitral regurgitation. There is no evidence of tricuspid valve regurgitation. Unable to estimate the right ventricular systolic pressure. There is no significant pericardial effusion. Measurements Name Value Normal Range RVIDd (AP) 2D 4.1 cm (0.9 - 2.6) RVDdMajor (2D) 3.6 cm (2.2 - 4.4) RAd ISD 4CH 5.8 cm (3.4 - 4.9) RA (A4C)W 3.9 cm (2.9 - 4.6) IVSd (2D) 1.8 cm (0.6 - 1) LVPWd (2D) 1.4 cm (0.6 - 1) LVIDd (2D) 4.2 cm (3.6 - 5.4) LVIDs (2D) 3.2 cm - LV FS (2D) 24 % (25 - 45) Aortic Annulus 2.4 cm (1.4 - 2.6) Ao root diameter (2D) 3.7 cm (2.1 - 3.5) Ascending Ao 3.4 cm (2.1 - 3.4) LA dimension (AP) 2D 3.9 cm (2.3 - 3.8) LAd ISD 4CH 7.1 cm (2.9 - 5.3) LA ISD 4CH W 4.4 cm (2.5 - 4.5) Name Value Normal Range LA ESV BP (A/L) index 38 ml/m2 - Name Value Normal Range MV E-wave Vmax 0.7 m/sec - MV deceleration time 211 msec - MV A-wave Vmax 0.8 m/sec - MV E:A ratio 0.8 ratio - LV septal e' Vmax 0.05 m/sec - LV lateral e' Vmax 0.06 m/sec - LV E:e' septal ratio 14 ratio - LV E:e' lateral ratio 11 ratio - Name Value Normal Range AV Vmax 3 m/sec - AV VTI 57 cm - AV peak gradient 36 mmHg - AV mean gradient 19 mmHg - LVOT diameter 2 cm - LVOT Vmax 1.1 m/sec - LVOT VTI 24 cm - LVOT peak gradient 5 mmHg - LVOT mean gradient 3 mmHg - DOI (VTI) 0.4 ratio - KANDY (continuity Vmax) 1.2 cm2 - KANDY (continuity VTI) 1.3 cm2 - Name Value Normal Range RAP 8 mmHg - IVC diameter 2.3 cm - Name Value Normal Range PV Vmax 1 m/sec - PV peak gradient 4 mmHg -
[2017-11-15] MEDS: NS 0.9% 1000 ML* 1,000 ML IV SCH (15:55)
[2017-11-15] MEDS ORDERED: Vancomycin Trough Check NOTE FOLLOW UP ONE (16:30)
--- NOTE | 2017-11-15 19:00 | PN ---
Subjective Date of Service: 11/15/17 Interval History: Patient seen and examined. States he feels "terrible", weak and achy with general malaise. No headache or chest pain. Mild fevers, some chills. Objective Active Medications: Acetaminophen (Tylenol Tab*) 650 mg PO Q6H PRN PRN Reason: FEVER/PAIN Last Admin: 11/14/17 16:07 Dose: 650 mg Aspirin (Aspirin 81 Mg Chew Tab*) 81 mg PO DAILY [facility] Last Admin: 11/15/17 09:20 Dose: 81 mg Atorvastatin Calcium (Lipitor*) 10 mg PO DAILY [facility] Last Admin: 11/15/17 09:20 Dose: 10 mg Dextrose (D50w Syringe 50 Ml*) 12.5 gm IV PUSH .FOR FS < 60 - SS PRN PRN Reason: FS < 60 Enoxaparin Sodium (Lovenox(*)) 30 mg SUBCUT Q24H [facility] Last Admin: 11/15/17 09:20 Dose: 30 mg Haloperidol Lactate (Haldol Inj Iv/Im*) 5 mg IV SLOW PU Q6H PRN PRN Reason: AGITATION Last Admin: 11/14/17 17:35 Dose: 5 mg Sodium Chloride (Ns 0.9% 1000 Ml*) 1,000 mls @ 75 mls/hr IV PER RATE [facility] Last Admin: 11/15/17 15:55 Dose: 75 mls/hr Vancomycin HCl 1,000 mg/ (Sodium Chloride) 250 mls @ 166.667 mls/hr IVPB Q8H [facility] Last Admin: 11/15/17 09:21 Dose: 166.667 mls/hr Piperacillin Sod/Tazobactam (Sod 3.375 gm/ Sodium Chloride) 100 mls @ 25 mls/ hr IVPB Q8H [facility] Last Admin: 11/15/17 15:55 Dose: 25 mls/hr Insulin Human Lispro (Humalog*) 0 units SUBCUT ACHS [facility]; Protocol Last Admin: 11/15/17 17:50 Dose: 3 units Levothyroxine Sodium (Synthroid Tab*) 75 mcg PO 0600 [facility] Last Admin: 11/15/17 06:20 Dose: 75 mcg Pharmacy Consult (Vancomycin Per Pharmacy*) 1 note FOLLOW UP .VANC PER PHARMACY [facility] Pharmacy Consult (Zosyn Per Pharmacy*) 1 note FOLLOW UP .ZOSYN PER PHARMACY [facility] Vital Signs - 8 hr 11/15/17 11/15/17 11:42 15:15 Temperature 99.5 F 98.5 F Pulse Rate 73 70 Respiratory 20 16 Rate Blood Pressure 91/44 102/59 (mmHg) O2 Sat by Pulse 93 96 Oximetry Oxygen Devices in Use Now: None Appearance: Alert, NAD, tired Eyes: PERRLA, - - periorbital erythema and mild edema with droop left corner of the mouth Ears/Nose/Mouth/Throat: Mucous Membranes Moist Neck: NL Appearance and Movements; NL JVP, Trachea Midline Respiratory: Symmetrical Chest Expansion and Respiratory Effort, Clear to Auscultation Cardiovascular: NL Sounds; No Murmurs; No JVD, RRR, No Edema Extremities: No Edema Skin: No Rash or Ulcers Neurological: Alert and Oriented x 3, NL Sensation, - - general weakness Nutrition: Taking PO's Result Diagrams: 11/15/17 06:16 11/15/17 06:16 Additional Lab and Data: Lab Results 11/14/17 11/14/17 11/14/17 Range/Units 05:30 05:30 05:30 WBC 13.6 H (3.5-10.8) 10^3/ul RBC 4.31 (4.00-5.40) 10^6/ul Hgb 13.7 L (14.0-18.0) g/dl Hct 41 L (42-52) % MCV 95 H (80-94) fL MCH 32 H (27-31) pg MCHC 34 (31-36) g/dl RDW 13 (10.5-15) % Plt Count 225 (150-450) 10^3/ul MPV 7.5 (7.4-10.4) um3 Neut % (Auto) 86.4 H (38-83) % Lymph % (Auto) 3.3 L (25-47) % [place] % (Auto) 9.8 H (0-7) % Eos % (Auto) 0.2 (0-6) % Baso % (Auto) 0.3 (0-2) % Absolute Neuts (auto) 11.7 H (1.5-7.7) 10^3/ul Absolute Lymphs (auto) 0.5 L (1.0-4.8) 10^3/ul Absolute Monos (auto) 1.3 H (0-0.8) 10^3/ul Absolute Eos (auto) 0 (0-0.6) 10^3/ul Absolute Basos (auto) 0 (0-0.2) 10^3/ul Absolute Nucleated RBC 0 10^3/ul Nucleated RBC % 0.3 INR (Anticoag Therapy) 0.98 (0.77-1.02) APTT 30.1 (26.0-36.3) seconds Sodium 132 L (135-145) mmol/L Potassium 4.0 (3.5-5.0) mmol/L Chloride 96 L (101-111) mmol/L Carbon Dioxide 27 (22-32) mmol/L Anion Gap 9 (2-11) mmol/L BUN 17 (6-24) mg/dL Creatinine 0.91 (0.67-1.17) mg/dL Est GFR ( Amer) 95.1 (>60) Est GFR (Non-Af Amer) 78.6 (>60) BUN/Creatinine Ratio 18.7 (8-20) Glucose 328 H (70-100) mg/dL POC Glucose (mg/dL) (70-100) mg/dL Calcium 9.2 (8.6-10.3) mg/dL Total Bilirubin 1.40 H (0.2-1.0) mg/dL AST 18 (13-39) U/L ALT 18 (7-52) U/L Alkaline Phosphatase 69 (34-104) U/L Total Protein 6.8 (6.4-8.9) g/dL Albumin 3.7 (3.2-5.2) g/dL Globulin 3.1 (2-4) g/dL Albumin/Globulin Ratio 1.2 (1-3) 11/14/17 Range/Units 05:49 WBC (3.5-10.8) 10^3/ul RBC (4.00-5.40) 10^6/ul Hgb (14.0-18.0) g/dl Hct (42-52) % MCV (80-94) fL MCH (27-31) pg MCHC (31-36) g/dl RDW (10.5-15) % Plt Count (150-450) 10^3/ul MPV (7.4-10.4) um3 Neut % (Auto) (38-83) % Lymph % (Auto) (25-47) % [place] % (Auto) (0-7) % Eos % (Auto) (0-6) % Baso % (Auto) (0-2) % Absolute Neuts (auto) (1.5-7.7) 10^3/ul Absolute Lymphs (auto) (1.0-4.8) 10^3/ul Absolute Monos (auto) (0-0.8) 10^3/ul Absolute Eos (auto) (0-0.6) 10^3/ul Absolute Basos (auto) (0-0.2) 10^3/ul Absolute Nucleated RBC 10^3/ul Nucleated RBC % INR (Anticoag Therapy) (0.77-1.02) APTT (26.0-36.3) seconds Sodium (135-145) mmol/L Potassium (3.5-5.0) mmol/L Chloride (101-111) mmol/L Carbon Dioxide (22-32) mmol/L Anion Gap (2-11) mmol/L BUN (6-24) mg/dL Creatinine (0.67-1.17) mg/dL Est GFR ( Amer) (>60) Est GFR (Non-Af Amer) (>60) BUN/Creatinine Ratio (8-20) Glucose (70-100) mg/dL POC Glucose (mg/dL) 330 H (70-100) mg/dL Calcium (8.6-10.3) mg/dL Total Bilirubin (0.2-1.0) mg/dL AST (13-39) U/L ALT (7-52) U/L Alkaline Phosphatase (34-104) U/L Total Protein (6.4-8.9) g/dL Albumin (3.2-5.2) g/dL Globulin (2-4) g/dL Albumin/Globulin Ratio (1-3) Microbiology and Other Data: Microbiology 11/14/17 09:50 Aerobic Blood Culture - Preliminary Blood Venous No Growth Day 1 Anaerobic Blood Culture - Preliminary 11/14/17 12:53 Aerobic Blood Culture - Preliminary Blood Venous No Growth Day 1 Anaerobic Blood Culture - Preliminary No Growth Day 1 Diagnostic Imaging: Patient Name: NURY CARDONA Medical Record#: [id number] Ordering Physician: All Aguirre MD Acct.#: [id number] : 1930 Age: 87 Sex: M Location: [address] [place] [address] - MEDICAL/TELEMETRY Exam Date: 11/14/171629 ADM Status: ADM Matthew Order Information: CT BRAIN WO Accession Number: [id number] CPT: 10812 HISTORY: Repeat due to sudden MS change with HTN COMPARISONS: Head CT dated November 14, 2017 at 5:20 AM, MRI dated November 14, 2017 TECHNIQUE: Multiple contiguous axial CT scans were obtained of the head without intravenous contrast. FINDINGS: The study is limited by patient motion artifact. HEMORRHAGE/INFARCT: There is no hemorrhage or acute infarct. MASSES/SHIFT: There is no mass or shift. EXTRA-AXIAL SPACES: There are no extra-axial fluid collections. SULCI AND VENTRICLES: The sulci and ventricles are normal in size and position for the patient's stated age. CEREBRUM: There is hypoattenuation of the periventricular and subcortical white matter. Again noted is a chronic lacunar infarct versus dilated perivascular space of the left basal ganglia. BRAINSTEM: There are no focal parenchymal abnormalities. CEREBELLUM: There are no focal parenchymal abnormalities. VESSELS: The vessels are grossly normal. PARANASAL SINUSES: The paranasal sinuses are clear. ORBITS: The orbits are unremarkable. BONES AND SOFT TISSUE: No bone or soft tissue abnormalities are noted. OTHER: None IMPRESSION: NO ACUTE INTRACRANIAL PATHOLOGY. <Electronically signed by Myles Lloyd MD in [facility]> 11/14/171723 Dictated By: Myles Lloyd MD Dictated Date/Time: 11/14/171723 Transcribed Date/Time: 11/14/171722 Copy to: Assess/Plan/Problems-Billing Assessment: This is an 87 year old male with that presents with weakness and left side facial droop and fever after having dental procedure, r/o CVA vs bacterial etiology. 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 (5) DVT prophylaxis Code(s): ESF0001 - SNOMED Code(s): 976062661 Comment: - SQ heparin (6) Full code status Code(s): Z78.9 - OTHER SPECIFIED HEALTH STATUS SNOMED Code(s): 117399864
[2017-11-15] MEDS ORDERED: NS 0.9% 1000 ML* 1,000 ML IV ONE (19:01)
[2017-11-15 19:18] LABS: Vancomycin Trough 10.2 mcg/mL
--- NOTE | 2017-11-15 20:54 | CONS ---
NEUROLOGY CONSULTATION: DATE OF CONSULT: 11/15/17 CONSULTING PROVIDER: ULISES Patino. REASON FOR CONSULT: Left facial palsy. CHIEF COMPLAINT: Left facial pain. HISTORY OF PRESENT ILLNESS: Mr. Perez is an 87-year-old right handed man with history of type 2 diabetes, hypertension, hypothyroidism who lives at [facility], who has had a dental procedure on 11/13/17. He presented to [facility] due to symptoms of chills and fevers. Neurology was consulted for concern of stroke-like symptoms and left facial weakness. The patient informed me today that he had facial pain starting 3 weeks ago. It hurts to push on the left side of the cheeks and under the eye. He also had swelling around that area. He denied any focal weakness or procedures. He denied any headaches, visual disturbance, or swallowing dysfunction. The patient had a brain CT of the head that showed no acute intracranial abnormality, but if we review the CT imaging, there is some swelling underneath the skin region anterior to the maxillary sinus area underneath the eye. He had a head and neck CTA, showed no evidence of large vessel occlusion except for a left vertebral artery stenosis. He had an MRI of the brain that showed no acute infarction. There was diffuse cerebral atrophy. There was some increasing fluid in the left cheek bone area closer to the superficial skin region suggestive of some inflammatory changes, possible cellulitis. He had a repeat brain CT done on 11/14/17 due to an episode of confusion that was again unchanged from the previous study. The patient currently has no complaint except for the left facial pain. PAST MEDICAL HISTORY: Type 2 diabetes, obesity, hypothyroidism, dyslipidemia, osteoarthritis, hypertension, and traumatic amputation of the right transmetatarsal in 1947. MEDICATIONS: 1. Actos 45 mg p.o. daily. 2. Lisinopril 10 mg p.o. daily. 3. Metformin 1000 mg p.o. twice daily. 4. Sitagliptin 100 mg p.o. 12 o'clock. 5. Glipizide 10 mg p.o. b.i.d. 6. Levothyroxine 75 mcg p.o. daily. ALLERGIES: No known drug allergies. FAMILY HISTORY: No history of stroke or seizure. SOCIAL HISTORY: The patient is a former smoker, he quit in 1971. He lives with his at [facility]. He denied any alcohol abuse. REVIEW OF SYSTEMS: A 14-point review of systems was obtained and otherwise negative except for what was mentioned in the HPI. PHYSICAL EXAM: Vitals: Temperature 99.5, pulse rate 73, respiratory rate 20, oxygen saturation 93%, blood pressure 91/44. General: A chronically ill man in no acute distress. Head is normocephalic, atraumatic. Eyes: Conjunctivae/ corneas are clear. Neck is supple and symmetrical. Lungs are clear to auscultation bilaterally. Extremities: Normal range of motion with no cyanosis. Skin: No skin lesion or laceration except for there is some periorbital swelling right underneath the left eye as well as erythema and tenderness to palpation of the left side of the face near the maxillary sinus. Psych: Affect is broad and normal mood. Neurological Examination: The patient is awake, alert, and oriented to person, place, and time. He has mild psychomotor slowing. Cranial Nerves: Normal confrontation testing bilaterally. Pupils are mid range and reactive. Sensation is intact in the forehead, cheeks, and jaw region bilaterally. He has a slight left facial droop with flattening of the left nasolabial fold. He is able to hear throughout the history process. There is normal strength against resistance with shoulder shrug and tongue is symmetrical and midline with no atrophy. Motor Examination: No abnormal movements. 5/5 strength throughout the upper and lower extremities bilaterally. Reflexes trace throughout the upper and lower extremities, absent at the ankles bilaterally. Plantar flexor response on the left. Sensation is intact to light touch throughout. Coordination: Normal finger- to-nose and rapid alternating movement. Gait and station were not assessed as the patient was having dinner and opted to not ambulate. DIAGNOSTIC STUDIES/LAB DATA: Laboratory, imaging, and other diagnostic testing : Blood cultures grew gram-positive cocci resembling strep x1 out of 4 bottles. WBC 8.2, hemoglobin 13.2, hematocrit 39. Sodium 134, glucose 159. ASSESSMENT AND PLAN: Mr. Levon Perez is an 87-year-old man with subacute history of left facial pain and weakness. On examination, the patient does have evidence of mild facial droop with flattening of the nasolabial fold on the left. He also has significant tenderness to deep palpation and slight swelling and erythema of the left facial area near the maxillary sinus. I suspect the patient has an abscess or cellulitis around that region that is contributing to his pain as well as the facial asymmetry. He does not have any evidence of stroke on CAT scan or MRI imaging. He has no other focal neurological deficits. The symptoms of confusion at night time are most likely related to delirium in the setting of an ongoing infection. He was started on antibiotics today. I do not recommend any further neurological workup at this time. Please contact us for any questions or concerns. TIME SPENT: I spent a total of 55 minutes and greater than 50% was spent directly reviewing the medical chart, obtaining history, examining the patient, and discussing the treatment plan with the patient and his primary provider. [id number]/CPS #: [id number] MTDD
[2017-11-15] MEDS: Vancomycin(*) 1,250 MG in NS 0.9% 250 ML* 250 ML IVPB SCH (22:55)
[2017-11-16] MEDS: ZOSYN 3.375 GM Q8H per EXTENDED INFUSION IVPB SCH ×8 (01:18→20:11)
[2017-11-16] MEDS: Levothyroxine TAB* 75 MCG TAB PO SCH (06:37)
--- NOTE | 2017-11-16 07:53 | RAD ---
HISTORY: r/o peritonsilar abscess and periorbital celluliti COMPARISONS: None TECHNIQUE: Multiple contiguous axial CT scans were obtained of the face without intravenous contrast, with coronal and sagittal multiplanar reformations. FINDINGS: The study is limited by the lack of intravenous contrast. This limits evaluation of the solid organs and vasculature. BONES: There is no displaced fracture or dislocation. The orbital rim is intact. The zygomatic arch is intact. The pterygoid plates are intact. ORBITS: The globes are round. The optic nerves are symmetric. The extraocular musculature is normal. There is no post septal or intraconal inflammatory change. There is no retrobulbar hematoma. PARANASAL SINUSES: The paranasal sinuses are clear. BRAIN AND SOFT TISSUE: There is asymmetric enlargement of the left palatine tonsil with a tonsillolith. There is no appreciable loculated fluid collection to suggest abscess. There is no edema of the parapharyngeal fat. OTHER: None. IMPRESSION: 1. NO POST SEPTAL OR INTRACONAL INFLAMMATORY CHANGE TO SUGGEST ORBITAL CELLULITIS. 2. THERE IS ASYMMETRIC ENLARGEMENT OF THE LEFT PALATINE TONSIL. THERE IS NO LOCULATED FLUID COLLECTION TO SUGGEST ABSCESS. 3. GIVEN THE CLINICAL HISTORY, THIS MAY REPRESENT PHLEGMON, THOUGH THERE IS NO ADJACENT INFLAMMATORY CHANGE. THE DIFFERENTIAL DOES INCLUDE MUCOSAL NEOPLASM. RECOMMEND CORRELATION WITH DIRECT VISUALIZATION..
[2017-11-16] MEDS: Insulin LISPRO* 1 UNITS UNIT SUBCUT SCH ×4 (08:59→20:11)
[2017-11-16] MEDS: Atorvastatin* 10 MG TAB PO SCH (09:00)
[2017-11-16] MEDS: Vancomycin(*) 1,250 MG in NS 0.9% 250 ML* 250 ML IVPB SCH ×2 (09:00→14:54)
[2017-11-16] MEDS: Aspirin 81 mg CHEW TAB* 81 MG TAB.CHEW PO SCH (09:00)
[2017-11-16] MEDS: Enoxaparin(*) 30 MG/0.3 ML SYR SUBCUT SCH (09:03)
[2017-11-16] MEDS: NS 0.9% 1000 ML* 1,000 ML IV SCH (13:44)
--- NOTE | 2017-11-16 18:52 | PN ---
Subjective Date of Service: 11/16/17 Interval History: Patient seen and examined. Appears to be improving. States less weakness, no tooth pain. No headache fevers or chills. Objective Active Medications: Acetaminophen (Tylenol Tab*) 650 mg PO Q6H PRN PRN Reason: FEVER/PAIN Last Admin: 11/14/17 16:07 Dose: 650 mg Aspirin (Aspirin 81 Mg Chew Tab*) 81 mg PO DAILY [facility] Last Admin: 11/16/17 09:00 Dose: 81 mg Atorvastatin Calcium (Lipitor*) 10 mg PO DAILY [facility] Last Admin: 11/16/17 09:00 Dose: 10 mg Dextrose (D50w Syringe 50 Ml*) 12.5 gm IV PUSH .FOR FS < 60 - SS PRN PRN Reason: FS < 60 Enoxaparin Sodium (Lovenox(*)) 30 mg SUBCUT Q24H [facility] Last Admin: 11/16/17 09:03 Dose: 30 mg Haloperidol Lactate (Haldol Inj Iv/Im*) 5 mg IV SLOW PU Q6H PRN PRN Reason: AGITATION Last Admin: 11/14/17 17:35 Dose: 5 mg Sodium Chloride (Ns 0.9% 1000 Ml*) 1,000 mls @ 75 mls/hr IV PER RATE [facility] Last Admin: 11/16/17 13:44 Dose: 75 mls/hr Piperacillin Sod/Tazobactam (Sod 3.375 gm/ Sodium Chloride) 100 mls @ 25 mls/ hr IVPB 0300,1100,1900 [facility] Last Admin: 11/16/17 11:12 Dose: Not Given Insulin Human Lispro (Humalog*) 0 units SUBCUT ACHS [facility]; Protocol Last Admin: 11/16/17 17:23 Dose: 6 units Levothyroxine Sodium (Synthroid Tab*) 75 mcg PO 0600 [facility] Last Admin: 11/16/17 06:37 Dose: 75 mcg Pharmacy Consult (Zosyn Per Pharmacy*) 1 note FOLLOW UP .ZOSYN PER PHARMACY [facility] Vital Signs - 8 hr 11/16/17 11/16/17 11:24 15:41 Temperature 98.5 F Pulse Rate 70 64 Respiratory 20 18 Rate Blood Pressure 115/58 111/47 (mmHg) O2 Sat by Pulse 94 94 Oximetry Oxygen Devices in Use Now: None Appearance: Alert, NAD Eyes: No Scleral Icterus, PERRLA Ears/Nose/Mouth/Throat: NL Teeth, Lips, Gums, Mucous Membranes Moist Neck: NL Appearance and Movements; NL JVP, Trachea Midline Respiratory: Symmetrical Chest Expansion and Respiratory Effort, Clear to Auscultation Cardiovascular: NL Sounds; No Murmurs; No JVD, RRR Abdominal: NL Sounds; No Tenderness; No Distention Extremities: No Edema, - - right mid foot amputation, healed Skin: No Rash or Ulcers Neurological: NL Sensation, NL Gait, - - A&Ox2, periods of confusion Nutrition: Taking PO's Result Diagrams: 11/15/17 06:16 11/15/17 06:16 Additional Lab and Data: Lab Results 11/14/17 11/14/17 11/14/17 Range/Units 05:30 05:30 05:30 WBC 13.6 H (3.5-10.8) 10^3/ul RBC 4.31 (4.00-5.40) 10^6/ul Hgb 13.7 L (14.0-18.0) g/dl Hct 41 L (42-52) % MCV 95 H (80-94) fL MCH 32 H (27-31) pg MCHC 34 (31-36) g/dl RDW 13 (10.5-15) % Plt Count 225 (150-450) 10^3/ul MPV 7.5 (7.4-10.4) um3 Neut % (Auto) 86.4 H (38-83) % Lymph % (Auto) 3.3 L (25-47) % [place] % (Auto) 9.8 H (0-7) % Eos % (Auto) 0.2 (0-6) % Baso % (Auto) 0.3 (0-2) % Absolute Neuts (auto) 11.7 H (1.5-7.7) 10^3/ul Absolute Lymphs (auto) 0.5 L (1.0-4.8) 10^3/ul Absolute Monos (auto) 1.3 H (0-0.8) 10^3/ul Absolute Eos (auto) 0 (0-0.6) 10^3/ul Absolute Basos (auto) 0 (0-0.2) 10^3/ul Absolute Nucleated RBC 0 10^3/ul Nucleated RBC % 0.3 INR (Anticoag Therapy) 0.98 (0.77-1.02) APTT 30.1 (26.0-36.3) seconds Sodium 132 L (135-145) mmol/L Potassium 4.0 (3.5-5.0) mmol/L Chloride 96 L (101-111) mmol/L Carbon Dioxide 27 (22-32) mmol/L Anion Gap 9 (2-11) mmol/L BUN 17 (6-24) mg/dL Creatinine 0.91 (0.67-1.17) mg/dL Est GFR ( Amer) 95.1 (>60) Est GFR (Non-Af Amer) 78.6 (>60) BUN/Creatinine Ratio 18.7 (8-20) Glucose 328 H (70-100) mg/dL POC Glucose (mg/dL) (70-100) mg/dL Calcium 9.2 (8.6-10.3) mg/dL Total Bilirubin 1.40 H (0.2-1.0) mg/dL AST 18 (13-39) U/L ALT 18 (7-52) U/L Alkaline Phosphatase 69 (34-104) U/L Total Protein 6.8 (6.4-8.9) g/dL Albumin 3.7 (3.2-5.2) g/dL Globulin 3.1 (2-4) g/dL Albumin/Globulin Ratio 1.2 (1-3) 11/14/17 Range/Units 05:49 WBC (3.5-10.8) 10^3/ul RBC (4.00-5.40) 10^6/ul Hgb (14.0-18.0) g/dl Hct (42-52) % MCV (80-94) fL MCH (27-31) pg MCHC (31-36) g/dl RDW (10.5-15) % Plt Count (150-450) 10^3/ul MPV (7.4-10.4) um3 Neut % (Auto) (38-83) % Lymph % (Auto) (25-47) % [place] % (Auto) (0-7) % Eos % (Auto) (0-6) % Baso % (Auto) (0-2) % Absolute Neuts (auto) (1.5-7.7) 10^3/ul Absolute Lymphs (auto) (1.0-4.8) 10^3/ul Absolute Monos (auto) (0-0.8) 10^3/ul Absolute Eos (auto) (0-0.6) 10^3/ul Absolute Basos (auto) (0-0.2) 10^3/ul Absolute Nucleated RBC 10^3/ul Nucleated RBC % INR (Anticoag Therapy) (0.77-1.02) APTT (26.0-36.3) seconds Sodium (135-145) mmol/L Potassium (3.5-5.0) mmol/L Chloride (101-111) mmol/L Carbon Dioxide (22-32) mmol/L Anion Gap (2-11) mmol/L BUN (6-24) mg/dL Creatinine (0.67-1.17) mg/dL Est GFR ( Amer) (>60) Est GFR (Non-Af Amer) (>60) BUN/Creatinine Ratio (8-20) Glucose (70-100) mg/dL POC Glucose (mg/dL) 330 H (70-100) mg/dL Calcium (8.6-10.3) mg/dL Total Bilirubin (0.2-1.0) mg/dL AST (13-39) U/L ALT (7-52) U/L Alkaline Phosphatase (34-104) U/L Total Protein (6.4-8.9) g/dL Albumin (3.2-5.2) g/dL Globulin (2-4) g/dL Albumin/Globulin Ratio (1-3) Microbiology and Other Data: Microbiology 11/14/17 09:50 Aerobic Blood Culture - Preliminary Blood Venous No Growth Day 1 Anaerobic Blood Culture - Preliminary 11/14/17 12:53 Aerobic Blood Culture - Preliminary Blood Venous No Growth Day 1 Anaerobic Blood Culture - Preliminary No Growth Day 1 Diagnostic Imaging: Patient Name: NURY CARDONA Medical Record#: [id number] Ordering Physician: All Aguirre MD Acct.#: [id number] : 1930 Age: 87 Sex: M Location: [address] [place] [address]/TELEMETRY Exam Date: 11/14/17 1630 ADM Status: ADM Matthew Order Information: CT BRAIN WO Accession Number: [id number] CPT: 59820 HISTORY: Repeat due to sudden MS change with HTN COMPARISONS: Head CT dated November 14, 2017 at 5:20 AM, MRI dated November 14, 2017 TECHNIQUE: Multiple contiguous axial CT scans were obtained of the head without intravenous contrast. FINDINGS: The study is limited by patient motion artifact. HEMORRHAGE/INFARCT: There is no hemorrhage or acute infarct. MASSES/SHIFT: There is no mass or shift. EXTRA-AXIAL SPACES: There are no extra-axial fluid collections. SULCI AND VENTRICLES: The sulci and ventricles are normal in size and position for the patient's stated age. CEREBRUM: There is hypoattenuation of the periventricular and subcortical white matter. Again noted is a chronic lacunar infarct versus dilated perivascular space of the left basal ganglia. BRAINSTEM: There are no focal parenchymal abnormalities. CEREBELLUM: There are no focal parenchymal abnormalities. VESSELS: The vessels are grossly normal. PARANASAL SINUSES: The paranasal sinuses are clear. ORBITS: The orbits are unremarkable. BONES AND SOFT TISSUE: No bone or soft tissue abnormalities are noted. OTHER: None IMPRESSION: NO ACUTE INTRACRANIAL PATHOLOGY. <Electronically signed by Myles Lloyd MD in [facility]> 11/14/171723 Dictated By: Myles Lloyd MD Dictated Date/Time: 11/14/171723 Transcribed Date/Time: 11/14/171722 Copy to: Assess/Plan/Problems-Billing Assessment: This is an 87 year old male with that presents with weakness and left side facial droop and fever after having dental procedure, r/o CVA vs bacterial etiology. 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 (5) DVT prophylaxis Code(s): YDJ2948 - SNOMED Code(s): 117469658 Comment: - SQ heparin (6) Full code status Code(s): Z78.9 - OTHER SPECIFIED HEALTH STATUS SNOMED Code(s): 927656629 Status and Disposition: Plan for [facility]-House at discharge.
[2017-11-16] MEDS ORDERED: NS 0.9% 100 ML* 100 ML ONE (20:07)
[2017-11-17] MEDS: ZOSYN 3.375 GM Q8H per EXTENDED INFUSION IVPB SCH ×6 (03:44→21:32)
--- NOTE | 2017-11-17 04:20 | CONS ---
CONSULTATION REPORT: DATE OF CONSULT: 11/16/17. REQUESTING PROVIDER: Maria G Tierney NP CONSULTING SERVICE: Infectious Disease. REASON FOR CONSULTATION: Leukocytosis. IMPRESSION: 1. Admitted with facial droop. Neurologic workup has been unremarkable. He did recently have a left maxillary dental procedure, which was fairly extensive. He had some pain, swelling, redness around the left eye and zygomatic arch into lesser extends around the right eye. I suspect he has adjacent spread of soft tissue infection related to dental procedure. He is improving on antibiotics unlikely to be staphylococcal related. 2. Type 2 diabetes. 3. Obesity. 4. Mild dementia. RECOMMENDATIONS: We will stop his vancomycin. Continue Zosyn as long as he continues to improve, he can change Augmentin to take for 10 days. He did have a Strep intermedius in one of blood culture bottles given oropharyngeal source of infection that could be a true pathogen though will have 1 out of 4 bottles positive and intravascular spread of infection is unlikely. HISTORY OF PRESENT ILLNESS: An 87-year-old male with dementia, cannot provide much of the details of the history which are obtained instead from discussion with Maria G Tierney NP, and review of the medical record. He was brought from [facility] on 11/14/17 with fever, swelling in the left face, and concerning for left facial droop. He had apparently had a dental procedure a couple of days earlier. The dentist, who had done the procedure prescribed penicillin as an outpatient and had a dose but because of persistent symptoms and concern there was a stroke he was brought to the hospital. He had brain imaging, which revealed no acute stroke, seen by Neurology. He had been on vancomycin and Zosyn. The swelling on the face, eye, and zygomatic arch is improving. A CT of the face showed no abscess. He denies any pain today and shows the appetite is good. Denies diarrhea, rash. PAST MEDICAL HISTORY: 1. Dementia. 2. Obesity. 3. Diabetes. 4. Hypothyroidism. 5. Hyperlipidemia. 6. Osteoarthritis. 7. Hypertension. 8. History of skin graft, right foot. 9. Status post appendectomy. 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 ALLERGIES: No known drug allergies. MEDICATIONS: 1. Tylenol. 2. Aspirin. 3. Lipitor. 4. Enoxaparin. 5. Haldol as needed. 6. Levothyroxine. 7. Zosyn 3.375 g IV every 8 hours. 8. Vancomycin. FAMILY HISTORY: No recurrent infections as far as I can tell from the medical record. SOCIAL HISTORY: He lives at [facility]. No travel. No sick contacts. REVIEW OF SYSTEMS: All negative of a 14-point review of systems except as noted in the history of present illness. PHYSICAL EXAM: Vital Signs: Temperature 37, heart rate 70, respiratory rate 20 , blood pressure 115/60, oxygen saturation 94% on room air. In general, he is awake, not in distress. Neurologic: He is oriented x3. Follows all commands. HEENT: There is no conjunctival hemorrhage. There is mild left greater than right periorbital edema and erythema. No warmth, crepitus or tenderness. Erythema extends over the zygomatic arch. There is no tenderness today with frontal sinuses. There is no maxillary or mandibular tenderness. There is no thrush. Neck: Neck is supple without mass. Heart is regular rate and rhythm without murmurs, rubs or gallops. Lungs are clear to auscultation bilaterally. Abdomen: Soft, nontender, nondistended. There are bowel sounds present. Skin : There is no rash or splinter hemorrhage. Musculoskeletal: There is no spine tenderness to palpation. LABORATORY DATA: White blood cell count 8, hemoglobin 13, platelets 188. Creatinine 0.9. Urinalysis, ketones, protein, no blood. Please see impressions and recommendations as outlined above, which I have discussed with Maria G Tierney NP. Thanks for asking me to see Mr. Perez in consultation. [id number]/[facility] #: [id number] DOYLE
[2017-11-17] MEDS: Levothyroxine TAB* 75 MCG TAB PO SCH (05:43)
[2017-11-17] MEDS ORDERED: Vancomycin Trough Check NOTE FOLLOW UP ONE (07:00)
[2017-11-17] MEDS: Vancomycin(*) 1,000 MG in NS 0.9% 250 ML* 250 ML IVPB SCH (07:30)
[2017-11-17] MEDS: Atorvastatin* 10 MG TAB PO SCH (08:07)
[2017-11-17] MEDS: Aspirin 81 mg CHEW TAB* 81 MG TAB.CHEW PO SCH (08:07)
[2017-11-17 10:00] LABS: ABS Basophils 0 10^3/ul (0-0.2); ABS Eosinophils 0.3 10^3/ul (0-0.6); ABS Monocytes 0.9 10^3/ul (0-0.8); ABS Neutrophils 4.2 10^3/ul (1.5-7.7); ABS Nucleated RBC 0 10^3/ul; Eosinophil % 4.5 % (0-6); Hematocrit 38 % (42-52); Hemoglobin 13.1 g/dl (14.0-18.0); Lymphocyte % 15.4 % (25-47); Mean Corpuscular HGB Conc 35 g/dl (31-36); Mean Corpuscular Hemoglobin 32 pg (27-31); Mean Corpuscular Volume 94 fL (80-94); Mean Platelet Volume 7.5 um3 (7.4-10.4); Nucleated Red Blood Cells % 0.1; Platelet Count 203 10^3/ul (150-450); Red Blood Count 4.03 10^6/ul (4.00-5.40); Red Cell Distribution Width 14 % (10.5-15); White Blood Count 6.5 10^3/ul (3.5-10.8)
[2017-11-17] MEDS: Enoxaparin(*) 30 MG/0.3 ML SYR SUBCUT SCH (10:12)
[2017-11-17] MEDS: Insulin LISPRO* 1 UNITS UNIT SUBCUT SCH ×3 (10:12→17:01)
[2017-11-17 10:23] LABS: EGFR Non-African American 83.9 (>60)
--- NOTE | 2017-11-17 11:44 | PN ---
Subjective Date of Service: 11/17/17 Interval History: . Patient reports he feels well and hopes to go back to [facility] tomorrow. he denies fever/chills. Denies SOB/CP. Per nurse he has been a little restless getting in and out of bed all day long. Objective Active Medications: Acetaminophen (Tylenol Tab*) 650 mg PO Q6H PRN PRN Reason: FEVER/PAIN Last Admin: 11/14/17 16:07 Dose: 650 mg Aspirin (Aspirin 81 Mg Chew Tab*) 81 mg PO DAILY [facility] Last Admin: 11/17/17 08:07 Dose: 81 mg Atorvastatin Calcium (Lipitor*) 10 mg PO DAILY [facility] Last Admin: 11/17/17 08:07 Dose: 10 mg Dextrose (D50w Syringe 50 Ml*) 12.5 gm IV PUSH .FOR FS < 60 - SS PRN PRN Reason: FS < 60 Enoxaparin Sodium (Lovenox(*)) 30 mg SUBCUT Q24H [facility] Last Admin: 11/17/17 10:12 Dose: 30 mg Haloperidol Lactate (Haldol Inj Iv/Im*) 5 mg IV SLOW PU Q6H PRN PRN Reason: AGITATION Last Admin: 11/14/17 17:35 Dose: 5 mg Sodium Chloride (Ns 0.9% 1000 Ml*) 1,000 mls @ 75 mls/hr IV PER RATE [facility] Last Admin: 11/16/17 13:44 Dose: 75 mls/hr Piperacillin Sod/Tazobactam (Sod 3.375 gm/ Sodium Chloride) 100 mls @ 25 mls/ hr IVPB 0300,1100,1900 [facility] Last Admin: 11/17/17 03:44 Dose: 25 mls/hr Insulin Human Lispro (Humalog*) 0 units SUBCUT ACHS [facility]; Protocol Last Admin: 11/17/17 10:12 Dose: 6 units Levothyroxine Sodium (Synthroid Tab*) 75 mcg PO 0600 [facility] Last Admin: 11/17/17 05:43 Dose: 75 mcg Pharmacy Consult (Zosyn Per Pharmacy*) 1 note FOLLOW UP .ZOSYN PER PHARMACY [facility] Vital Signs - 8 hr 11/17/17 11/17/17 11/17/17 07:30 08:00 11:30 Temperature 97.8 F 97.5 F Pulse Rate 65 58 Respiratory 18 18 16 Rate Blood Pressure 120/63 140/65 (mmHg) O2 Sat by Pulse 94 97 Oximetry Oxygen Devices in Use Now: None Result Diagrams: 11/17/17 09:42 11/17/17 09:42 Additional Lab and Data: Lab Results 11/14/17 11/14/17 11/14/17 Range/Units 05:30 05:30 05:30 WBC 13.6 H (3.5-10.8) 10^3/ul RBC 4.31 (4.00-5.40) 10^6/ul Hgb 13.7 L (14.0-18.0) g/dl Hct 41 L (42-52) % MCV 95 H (80-94) fL MCH 32 H (27-31) pg MCHC 34 (31-36) g/dl RDW 13 (10.5-15) % Plt Count 225 (150-450) 10^3/ul MPV 7.5 (7.4-10.4) um3 Neut % (Auto) 86.4 H (38-83) % Lymph % (Auto) 3.3 L (25-47) % [place] % (Auto) 9.8 H (0-7) % Eos % (Auto) 0.2 (0-6) % Baso % (Auto) 0.3 (0-2) % Absolute Neuts (auto) 11.7 H (1.5-7.7) 10^3/ul Absolute Lymphs (auto) 0.5 L (1.0-4.8) 10^3/ul Absolute Monos (auto) 1.3 H (0-0.8) 10^3/ul Absolute Eos (auto) 0 (0-0.6) 10^3/ul Absolute Basos (auto) 0 (0-0.2) 10^3/ul Absolute Nucleated RBC 0 10^3/ul Nucleated RBC % 0.3 INR (Anticoag Therapy) 0.98 (0.77-1.02) APTT 30.1 (26.0-36.3) seconds Sodium 132 L (135-145) mmol/L Potassium 4.0 (3.5-5.0) mmol/L Chloride 96 L (101-111) mmol/L Carbon Dioxide 27 (22-32) mmol/L Anion Gap 9 (2-11) mmol/L BUN 17 (6-24) mg/dL Creatinine 0.91 (0.67-1.17) mg/dL Est GFR ( Amer) 95.1 (>60) Est GFR (Non-Af Amer) 78.6 (>60) BUN/Creatinine Ratio 18.7 (8-20) Glucose 328 H (70-100) mg/dL POC Glucose (mg/dL) (70-100) mg/dL Calcium 9.2 (8.6-10.3) mg/dL Total Bilirubin 1.40 H (0.2-1.0) mg/dL AST 18 (13-39) U/L ALT 18 (7-52) U/L Alkaline Phosphatase 69 (34-104) U/L Total Protein 6.8 (6.4-8.9) g/dL Albumin 3.7 (3.2-5.2) g/dL Globulin 3.1 (2-4) g/dL Albumin/Globulin Ratio 1.2 (1-3) 11/14/17 Range/Units 05:49 WBC (3.5-10.8) 10^3/ul RBC (4.00-5.40) 10^6/ul Hgb (14.0-18.0) g/dl Hct (42-52) % MCV (80-94) fL MCH (27-31) pg MCHC (31-36) g/dl RDW (10.5-15) % Plt Count (150-450) 10^3/ul MPV (7.4-10.4) um3 Neut % (Auto) (38-83) % Lymph % (Auto) (25-47) % [place] % (Auto) (0-7) % Eos % (Auto) (0-6) % Baso % (Auto) (0-2) % Absolute Neuts (auto) (1.5-7.7) 10^3/ul Absolute Lymphs (auto) (1.0-4.8) 10^3/ul Absolute Monos (auto) (0-0.8) 10^3/ul Absolute Eos (auto) (0-0.6) 10^3/ul Absolute Basos (auto) (0-0.2) 10^3/ul Absolute Nucleated RBC 10^3/ul Nucleated RBC % INR (Anticoag Therapy) (0.77-1.02) APTT (26.0-36.3) seconds Sodium (135-145) mmol/L Potassium (3.5-5.0) mmol/L Chloride (101-111) mmol/L Carbon Dioxide (22-32) mmol/L Anion Gap (2-11) mmol/L BUN (6-24) mg/dL Creatinine (0.67-1.17) mg/dL Est GFR ( Amer) (>60) Est GFR (Non-Af Amer) (>60) BUN/Creatinine Ratio (8-20) Glucose (70-100) mg/dL POC Glucose (mg/dL) 330 H (70-100) mg/dL Calcium (8.6-10.3) mg/dL Total Bilirubin (0.2-1.0) mg/dL AST (13-39) U/L ALT (7-52) U/L Alkaline Phosphatase (34-104) U/L Total Protein (6.4-8.9) g/dL Albumin (3.2-5.2) g/dL Globulin (2-4) g/dL Albumin/Globulin Ratio (1-3) Microbiology and Other Data: Microbiology 11/14/17 09:50 Aerobic Blood Culture - Preliminary Blood Venous No Growth Day 1 Anaerobic Blood Culture - Preliminary 11/14/17 12:53 Aerobic Blood Culture - Preliminary Blood Venous No Growth Day 1 Anaerobic Blood Culture - Preliminary No Growth Day 1 Diagnostic Imaging: Patient Name: NURY CARDONA Medical Record#: [id number] Ordering Physician: All Aguirre MD Acct.#: [id number] : 1930 Age: 87 Sex: M Location: [address] [place] [address] MEDICAL/TELEMETRY Exam Date: 11/14/17 1630 ADM Status: ADM Matthew Order Information: CT BRAIN WO Accession Number: [id number] CPT: 22543 HISTORY: Repeat due to sudden MS change with HTN COMPARISONS: Head CT dated November 14, 2017 at 5:20 AM, MRI dated November 14, 2017 TECHNIQUE: Multiple contiguous axial CT scans were obtained of the head without intravenous contrast. FINDINGS: The study is limited by patient motion artifact. HEMORRHAGE/INFARCT: There is no hemorrhage or acute infarct. MASSES/SHIFT: There is no mass or shift. EXTRA-AXIAL SPACES: There are no extra-axial fluid collections. SULCI AND VENTRICLES: The sulci and ventricles are normal in size and position for the patient's stated age. CEREBRUM: There is hypoattenuation of the periventricular and subcortical white matter. Again noted is a chronic lacunar infarct versus dilated perivascular space of the left basal ganglia. BRAINSTEM: There are no focal parenchymal abnormalities. CEREBELLUM: There are no focal parenchymal abnormalities. VESSELS: The vessels are grossly normal. PARANASAL SINUSES: The paranasal sinuses are clear. ORBITS: The orbits are unremarkable. BONES AND SOFT TISSUE: No bone or soft tissue abnormalities are noted. OTHER: None IMPRESSION: NO ACUTE INTRACRANIAL PATHOLOGY. <Electronically signed by Myles Lloyd MD in OV> 11/14/171723 Dictated By: Myles Lloyd MD Dictated Date/Time: 11/14/171723 Transcribed Date/Time: 11/14/171722 Copy to: Assess/Plan/Problems-Billing Assessment: This is an 87 year old male with that presents with weakness and left side facial droop and fever after having dental procedure, r/o CVA vs bacterial etiology. 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 (3) HTN (hypertension) Comment: - Hold lisinopril (4) Hypothyroid Comment: - Continue levothyroxine. (5) DVT prophylaxis Comment: - SQ heparin (6) Full code status Status and Disposition: Plan for [facility]-House at discharge.
[2017-11-17] MEDS ORDERED: NS 0.9% 100 ML* 100 ML ONE (21:24)
[2017-11-17] MEDS: metFORMIN* 1,000 MG TAB PO SCH (21:32)
[2017-11-17] MEDS: glipiZIDE TAB.XL* 5 MG PO SCH (21:32)
[2017-11-18] MEDS: ZOSYN 3.375 GM Q8H per EXTENDED INFUSION IVPB SCH ×4 (04:00→11:04)
[2017-11-18] MEDS: Levothyroxine TAB* 75 MCG TAB PO SCH (06:14)
--- NOTE | 2017-11-18 08:35 | DCNOTE ---
Subjective Date of Service: 11/18/17 Objective Active Medications: Acetaminophen (Tylenol Tab*) 650 mg PO Q6H PRN PRN Reason: FEVER/PAIN Last Admin: 11/14/17 16:07 Dose: 650 mg Aspirin (Aspirin 81 Mg Chew Tab*) 81 mg PO DAILY [facility] Last Admin: 11/17/17 08:07 Dose: 81 mg Atorvastatin Calcium (Lipitor*) 10 mg PO DAILY [facility] Last Admin: 11/17/17 08:07 Dose: 10 mg Dextrose (D50w Syringe 50 Ml*) 12.5 gm IV PUSH .FOR FS < 60 - SS PRN PRN Reason: FS < 60 Enoxaparin Sodium (Lovenox(*)) 30 mg SUBCUT Q24H [facility] Last Admin: 11/17/17 10:12 Dose: 30 mg Glipizide (Glucotrol Xl*) 10 mg PO BID [facility] Last Admin: 11/17/17 21:32 Dose: 10 mg Haloperidol Lactate (Haldol Inj Iv/Im*) 5 mg IV SLOW PU Q6H PRN PRN Reason: AGITATION Last Admin: 11/14/17 17:35 Dose: 5 mg Piperacillin Sod/Tazobactam (Sod 3.375 gm/ Sodium Chloride) 100 mls @ 25 mls/ hr IVPB 0300,1100,1900 [facility] Last Admin: 11/18/17 04:00 Dose: 25 mls/hr Levothyroxine Sodium (Synthroid Tab*) 75 mcg PO 0600 [facility] Last Admin: 11/18/17 06:14 Dose: 75 mcg Metformin HCl (Glucophage*) 1,000 mg PO BID [facility] Last Admin: 11/17/17 21:32 Dose: 1,000 mg Pharmacy Consult (Zosyn Per Pharmacy*) 1 note FOLLOW UP .ZOSYN PER PHARMACY [facility] Pioglitazone HCl (Actos Tab*) 45 mg PO DAILY [facility] Vital Signs - 8 hr 11/18/17 11/18/17 03:58 07:53 Temperature 98.0 F 98.3 F Pulse Rate 58 62 Respiratory 16 16 Rate Blood Pressure 131/52 132/65 (mmHg) O2 Sat by Pulse 95 91 Oximetry Oxygen Devices in Use Now: None Result Diagrams: 11/17/17 09:42 11/17/17 09:42 Additional Lab and Data: Lab Results 11/14/17 11/14/17 11/14/17 Range/Units 05:30 05:30 05:30 WBC 13.6 H (3.5-10.8) 10^3/ul RBC 4.31 (4.00-5.40) 10^6/ul Hgb 13.7 L (14.0-18.0) g/dl Hct 41 L (42-52) % MCV 95 H (80-94) fL MCH 32 H (27-31) pg MCHC 34 (31-36) g/dl RDW 13 (10.5-15) % Plt Count 225 (150-450) 10^3/ul MPV 7.5 (7.4-10.4) um3 Neut % (Auto) 86.4 H (38-83) % Lymph % (Auto) 3.3 L (25-47) % Camp % (Auto) 9.8 H (0-7) % Eos % (Auto) 0.2 (0-6) % Baso % (Auto) 0.3 (0-2) % Absolute Neuts (auto) 11.7 H (1.5-7.7) 10^3/ul Absolute Lymphs (auto) 0.5 L (1.0-4.8) 10^3/ul Absolute Monos (auto) 1.3 H (0-0.8) 10^3/ul Absolute Eos (auto) 0 (0-0.6) 10^3/ul Absolute Basos (auto) 0 (0-0.2) 10^3/ul Absolute Nucleated RBC 0 10^3/ul Nucleated RBC % 0.3 INR (Anticoag Therapy) 0.98 (0.77-1.02) APTT 30.1 (26.0-36.3) seconds Sodium 132 L (135-145) mmol/L Potassium 4.0 (3.5-5.0) mmol/L Chloride 96 L (101-111) mmol/L Carbon Dioxide 27 (22-32) mmol/L Anion Gap 9 (2-11) mmol/L BUN 17 (6-24) mg/dL Creatinine 0.91 (0.67-1.17) mg/dL Est GFR ( Amer) 95.1 (>60) Est GFR (Non-Af Amer) 78.6 (>60) BUN/Creatinine Ratio 18.7 (8-20) Glucose 328 H (70-100) mg/dL POC Glucose (mg/dL) (70-100) mg/dL Calcium 9.2 (8.6-10.3) mg/dL Total Bilirubin 1.40 H (0.2-1.0) mg/dL AST 18 (13-39) U/L ALT 18 (7-52) U/L Alkaline Phosphatase 69 (34-104) U/L Total Protein 6.8 (6.4-8.9) g/dL Albumin 3.7 (3.2-5.2) g/dL Globulin 3.1 (2-4) g/dL Albumin/Globulin Ratio 1.2 (1-3) 11/14/17 Range/Units 05:49 WBC (3.5-10.8) 10^3/ul RBC (4.00-5.40) 10^6/ul Hgb (14.0-18.0) g/dl Hct (42-52) % MCV (80-94) fL MCH (27-31) pg MCHC (31-36) g/dl RDW (10.5-15) % Plt Count (150-450) 10^3/ul MPV (7.4-10.4) um3 Neut % (Auto) (38-83) % Lymph % (Auto) (25-47) % Camp % (Auto) (0-7) % Eos % (Auto) (0-6) % Baso % (Auto) (0-2) % Absolute Neuts (auto) (1.5-7.7) 10^3/ul Absolute Lymphs (auto) (1.0-4.8) 10^3/ul Absolute Monos (auto) (0-0.8) 10^3/ul Absolute Eos (auto) (0-0.6) 10^3/ul Absolute Basos (auto) (0-0.2) 10^3/ul Absolute Nucleated RBC 10^3/ul Nucleated RBC % INR (Anticoag Therapy) (0.77-1.02) APTT (26.0-36.3) seconds Sodium (135-145) mmol/L Potassium (3.5-5.0) mmol/L Chloride (101-111) mmol/L Carbon Dioxide (22-32) mmol/L Anion Gap (2-11) mmol/L BUN (6-24) mg/dL Creatinine (0.67-1.17) mg/dL Est GFR ( Amer) (>60) Est GFR (Non-Af Amer) (>60) BUN/Creatinine Ratio (8-20) Glucose (70-100) mg/dL POC Glucose (mg/dL) 330 H (70-100) mg/dL Calcium (8.6-10.3) mg/dL Total Bilirubin (0.2-1.0) mg/dL AST (13-39) U/L ALT (7-52) U/L Alkaline Phosphatase (34-104) U/L Total Protein (6.4-8.9) g/dL Albumin (3.2-5.2) g/dL Globulin (2-4) g/dL Albumin/Globulin Ratio (1-3) Microbiology and Other Data: Microbiology 11/14/17 09:50 Aerobic Blood Culture - Preliminary Blood Venous No Growth Day 1 Anaerobic Blood Culture - Preliminary 11/14/17 12:53 Aerobic Blood Culture - Preliminary Blood Venous No Growth Day 1 Anaerobic Blood Culture - Preliminary No Growth Day 1 Diagnostic Imaging: Patient Name: NURY CARDONA Medical Record#: [id number] Ordering Physician: All Aguirre MD Acct.#: [id number] : 1930 Age: 87 Sex: M Location: [address] [place] [address] MEDICAL/TELEMETRY Exam Date: 11/14/17 1630 ADM Status: ADM Matthew Order Information: CT BRAIN WO Accession Number: [id number] CPT: 78076 HISTORY: Repeat due to sudden MS change with HTN COMPARISONS: Head CT dated November 14, 2017 at 5:20 AM, MRI dated November 14, 2017 TECHNIQUE: Multiple contiguous axial CT scans were obtained of the head without intravenous contrast. FINDINGS: The study is limited by patient motion artifact. HEMORRHAGE/INFARCT: There is no hemorrhage or acute infarct. MASSES/SHIFT: There is no mass or shift. EXTRA-AXIAL SPACES: There are no extra-axial fluid collections. SULCI AND VENTRICLES: The sulci and ventricles are normal in size and position for the patient's stated age. CEREBRUM: There is hypoattenuation of the periventricular and subcortical white matter. Again noted is a chronic lacunar infarct versus dilated perivascular space of the left basal ganglia. BRAINSTEM: There are no focal parenchymal abnormalities. CEREBELLUM: There are no focal parenchymal abnormalities. VESSELS: The vessels are grossly normal. PARANASAL SINUSES: The paranasal sinuses are clear. ORBITS: The orbits are unremarkable. BONES AND SOFT TISSUE: No bone or soft tissue abnormalities are noted. OTHER: None IMPRESSION: NO ACUTE INTRACRANIAL PATHOLOGY. <Electronically signed by Myles Lloyd MD in OV> 11/14/171723 Dictated By: Myles Lloyd MD Dictated Date/Time: 11/14/171723 Transcribed Date/Time: 11/14/171722 Copy to: Assess/Plan/Problems-Billing Assessment: This is an 87 year old male with that presents with weakness and left side facial droop and fever after having dental procedure, r/o CVA vs bacterial etiology. - Patient Problems (1) Streptococcal bacteremia Comment: - Blood culture positive in one bottle, most likely be contaminent? 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 (5) DVT prophylaxis Comment: - SQ heparin (6) Full code status Status and Disposition: Plan for [facility]-House at discharge.
[2017-11-18] MEDS ORDERED: Pioglitazone TAB* 15 MG PO SCH (09:00)
[2017-11-18] MEDS ORDERED: Lisinopril TAB* 10 MG PO ONE (09:11)
[2017-11-18] MEDS: glipiZIDE TAB.XL* 5 MG PO SCH (10:00)
[2017-11-18] MEDS: metFORMIN* 1,000 MG TAB PO SCH (10:02)
[2017-11-18] MEDS: Enoxaparin(*) 30 MG/0.3 ML SYR SUBCUT SCH (10:02)
[2017-11-18] MEDS: Atorvastatin* 10 MG TAB PO SCH (10:02)
--- NOTE | 2017-11-18 10:33 | DS ---
AMENDED REPORT NOW INCLUDES COSIGNER DESIGNATION - ESIGNED BEFORE ADJUSTMENT CC: Dr. Demetrio Whitehead; [facility]. * DISCHARGE SUMMARY: DATE OF ADMISSION: 11/14/17 DATE OF DISCHARGE: 11/18/17 PROVIDER: Leandra Pino NP ATTENDING PHYSICIAN: Virginie Fritz DO * (report dictated by Leandra Pino NP). PRIMARY CARE PROVIDER: Dr. Demetrio Whitehead. DISCHARGE DISPOSITION: Stable. Discharged to [facility]. DISCHARGE DIAGNOSES: 1. Left facial cellulitis with fever and leukocytosis post dental procedure with Streptococcus intermedius / positive blood cultures. SECONDARY DIAGNOSES: 1. Type 2 diabetes. 2. Mild dementia. 3. Obesity. HISTORY OF PRESENT ILLNESS AND HOSPITAL COURSE: Please see history and physical by Maria G Tierney NP, for full admission details. In summary, this is an 87- year-old male who lives at [facility] who was brought to the emergency department on 11/14/17 with fever, swelling in the left face and concern for left facial droop. The patient had a dental procedure couple days earlier and was prescribed penicillin as an outpatient, and due to noted left swelling on his face, which appeared like mild facial droop along with leukocytosis and fever, he was brought to the emergency department for further evaluation. A CT of the face showed no abscess. The patient was admitted to the hospitalist service and underwent a stroke workup. His brain CT showed no acute intracranial pathology. He also underwent a brain MRI, which showed no acute infarct as well as a head CTA, which showed: 1. "Atherosclerosis. 2. No internal carotid artery stenosis. 3. 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 4. Elsewhere there is no aneurysm, vascular malformation, occlusion, or stenosis of the visualized intracranial circulation." He was seen in consultation by neurologist, Dr. Eli, who did note the patient had evidence of mild facial droop with flattening of the nasolabial fold on the left with significant tenderness to deep palpation, slight swelling, and erythema on the left face near the maxillary sinus, however did not see any evidence of acute stroke on CAT scan or MRI imaging and the patient had no other noted focal neurological defects. The patient was felt that his symptoms are secondary to this left facial cellulitis secondary to dental procedure and it is possible that he had Streptococcus intermedius. He was seen in consultation by Infectious Disease, Dr. Reddy, who states there could be a true pathogen, though 1/4 bottles positive and intravascular spread of infection is unlikely. The patient has been treated with Zosyn IV throughout the hospitalization and recommendation per ID is to send the patient home on Augmentin for 10 days. The patient has done well throughout his hospitalization. He has no leukocytosis and has had no high fevers, only low-grade fevers noted on initial admission. He has been afebrile for the past 3 days. The patient has remained hemodynamically stable. The patient agrees for discharge back to [facility]. DISCHARGE MEDICATIONS: 1. Synthroid 75 mcg p.o. daily. 2. Metformin 1000 mg p.o. b.i.d. 3. Glipizide 10 mg p.o. b.i.d. 4. Januvia 100 mg p.o. daily. 5. Actos 45 mg p.o. daily. 6. Lisinopril 10 mg p.o. daily. 7. Augmentin 875 mg p.o. b.i.d. x10 days. DISCHARGE PLAN: 1. Discharged to [facility] today. 2. Disposition: Discharged stable. 3. Follow up with PCP within 2 to 5 days. If there are any concerning or worsening symptoms, please return to the emergency department. This is only a summary of the patient's hospitalization. If you have any questions regarding the patient's full hospitalization, please see office old medical record or feel free to call me at [phone] to the hospitalist office. TIME SPENT: Approximately 60 minutes was spent on this discharge. LEANDRA PINO, KVNG [id number]/[facility] #: [id number] DOYLE
[2017-11-18 11:46] VITALS: BP 137/56
== END 2017-11-18 14:19 | DRG 863 ==
LOC: ED 05:09 → MEDTELE 09:10 → OBSVTOIN 11-15 16:44
PROVIDERS: ADMIT Student in an Organized Health Care Education/Training Program; ATTEND Internal Medicine
DX: T81.4XXA Infection following a procedure, initial encounter (principal); L03.211 Cellulitis of face; R78.81 Bacteremia; B95.5 Unspecified streptococcus as the cause of diseases classified elsewhere; E11.9 Type 2 diabetes mellitus without complications; M19.90 Unspecified osteoarthritis, unspecified site; E66.9 Obesity, unspecified; E03.9 Hypothyroidism, unspecified; I10 Essential (primary) hypertension; F03.90 Unspecified dementia, unspecified severity, without behavioral disturbance, psychotic disturbance, mood disturbance, and anxiety; E78.5 Hyperlipidemia, unspecified; G31.89 Other specified degenerative diseases of nervous system; I65.02 Occlusion and stenosis of left vertebral artery; Y83.8 Other surgical procedures as the cause of abnormal reaction of the patient, or of later complication, without mention of misadventure at the time of the procedure; Y82.8 Other medical devices associated with adverse incidents; Z68.27 Body mass index [BMI] 27.0-27.9, adult; Z79.4 Long term (current) use of insulin; Z89.431 Acquired absence of right foot; Z83.3 Family history of diabetes mellitus; Z72.89 Other problems related to lifestyle; Z86.73 Personal history of transient ischemic attack (TIA), and cerebral infarction without residual deficits; Z87.891 Personal history of nicotine dependence
CPT/HCPCS: 36415; 70450; 70486; 70496; 70498; 70551; 71045; 80048; 80053; 80061; 80202; 81003; 81015; 83605; 83735; 84100; 84439; 84443; 84484; 85025; 85027; 85610; 85730; 86140; 87040; 87077; 87205; 93005; 93306; 99285; A9270-GY; C8929; G0378; G8978-GP-CL; G8979-GP-CI; G8987-GO-CJ; G8988-GO-CI; J1630; J1650; J2543; J3370; J3490; Q9967

== ENCOUNTER 2018-02-13 13:23 | Emergency (ER) | payer MEDICARE, BC ==
[2018-02-13] MEDS ORDERED: Amoxicillin/Clavulanate TAB* 875 MG PO ONE (14:15)
--- NOTE | 2018-02-13 14:21 | ED ---
Complex/Multi-Sys Presentation - HPI Summary HPI Summary: A 87 y/o male accompanied by his presents to the ED c/o dental pain/ infection. Additionally c/o swelling on right side of face. As per triage, "swollen face and dental pain, started last night; nurse said pus inside mouth around tooth?". According to the patient, nothing happened to cause his symptoms. He believes he has a tooth infection. Patient stated he will see dentist in [place] tomorrow. Patient is not allergic to any antibiotics. Patient consented to be started on abx. - History Of Current Complaint Chief Complaint: EDDentalPain Time Seen by Provider: 02/13/18 14:08 Hx Obtained From: Patient Onset/Duration: Sudden Onset, Still Present Timing: Constant Severity Currently: None Location: Negative Character: Unable To Describe Aggravating Factor(s): NOTHING Alleviating Factor(s): NOTHING Associated Signs And Symptoms: Positive: Other - Dental pain and swelling of right side of face - Allergies/Home Medications Allergies/Adverse Reactions: Allergies Allergy/AdvReac Type Severity Reaction Status Date / Time No Known Allergies Allergy Verified 02/13/18 13:28 PMH/Surg Hx/FS Hx/Imm Hx Endocrine/Hematology History: Reports: Hx Diabetes, Hx Thyroid Disease Cardiovascular History: Reports: Hx Hypercholesterolemia, Hx Hypertension, Hx Peripheral Vascular Disease Denies: Hx Pacemaker/ICD Respiratory History: Reports: Other Respiratory Problems/Disorders - Atelectesis GI History: Reports: Other GI Disorders - APPE History: Denies: Hx Dialysis, Hx Renal Disease Musculoskeletal History: Reports: Hx Arthritis, Other Musculoskeletal History - 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 Sensory History: Reports: Hx Contacts or Glasses Denies: Hx Hearing Aid Opthamlomology History: Reports: Hx Contacts or Glasses Neurological History: Reports: Hx Dementia - possible Psychiatric History: Denies: Hx Panic Disorder - Surgical History Surgery Procedure, Year, and Place: skin graft; appendectomy, amputation of the metatarsal right foot, skin graft x R foot osteomyelitis Infectious Disease History: No Infectious Disease History: Reports: History Other Infectious Disease Denies: Traveled Outside the [place] in Last 30 Days - Family History Known Family History: Positive: Diabetes - Social History Alcohol Use: Occasionally Hx Substance Use: No Substance Use Type: Reports: None Hx Tobacco Use: No Smoking Status (MU): Never Smoked Tobacco Type: Cigarettes Review of Systems Negative: Fever Positive: Dental Pain Positive: Other - POSITIVE: Swelling on right side of face All Other Systems Reviewed And Are Negative: Yes Physical Exam - Summary Physical Exam Summary: VITAL SIGNS: Reviewed. GENERAL: Patient is a well-developed and nourished male who is lying comfortable in the stretcher. Patient is not in any acute respiratory distress. HEAD AND FACE: No signs of trauma. No ecchymosis, hematomas or skull depressions. No sinus tenderness. EYES: PERRLA, EOMI x 2, No injected conjunctiva, no nystagmus. EARS: Hearing grossly intact. Ear canals and tympanic membranes are within normal limits. MOUTH: Oropharynx within normal limits. Infection of tooth 4 and 5. Dental decay. NECK: Supple, trachea is midline, no adenopathy, no JVD, no carotid bruit, no c- spine tenderness, neck with full ROM. CHEST: Symmetric, no tenderness at palpation LUNGS: Clear to auscultation bilaterally. No wheezing or crackles. CVS: Regular rate and rhythm, S1 and S2 present, no murmurs or gallops appreciated. ABDOMEN: Soft, non-tender. No signs of distention. No rebound no guarding, and no masses palpated. Bowel sounds are normal. EXTREMITIES: FROM in all major joints, no edema, no cyanosis or clubbing. NEURO: Alert and oriented x 3. No acute neurological deficits. Speech is normal and follows commands. SKIN: Dry and warm. Light swelling of right side of face. Triage Information Reviewed: Yes Vital Signs On Initial Exam: Initial Vitals Temp Pulse Resp BP Pulse Ox 97.3 F 67 16 138/66 93 02/13/18 13:24 02/13/18 13:24 02/13/18 13:24 02/13/18 13:24 02/13/18 13:24 Vital Signs Reviewed: Yes Diagnostics - Vital Signs Vital Signs Temp Pulse Resp BP Pulse Ox 02/13/18 13:24 97.3 F 67 16 138/66 93 - Laboratory Lab Statement: Any lab studies that have been ordered have been reviewed, and results considered in the medical decision making process. Complex Multi-Symp Course/Dx Assessment/Plan: A 87 y/o male accompanied by his presents to the ED c/o dental pain/infection. Additionally c/o swelling on right side of face. As per triage, "swollen face and dental pain, started last night; nurse said pus inside mouth around tooth?". According to the patient, nothing happened to cause his symptoms. He believes he has a tooth infection. Patient stated he will see dentist in [place] tomorrow. Patient is not allergic to any antibiotics. Patient consented to be started on abx. Patient doesnt have any airway compromise, does not have tongue swelling, lip swelling, he has positive dental decay and infected tooth. Therefore the patient was placed in Augmentin and he will be discharged home with follow-up with his dentist who is located in [facility] tomorrow. Patient reports that he will be able to get to see his dentist tomorrow. Patient was instructed to return to the emergency room if he is unable to get any dental appointment and his symptoms worsen. The patient understands and agrees. I discussed all the findings with the patient. Patient was instructed to return to the emergency room immediately if any of the symptoms return or worsens. Plan of care was discussed with the patient and understands and agrees. All questions were answered at patient satisfaction. There were no further complaints or concerns. Lung exam before discharge: CTA B /L. Good air exchange. No wheezing or crackles heard. CVS: S1 and S2 present. No murmurs appreciated. Patient is alert and oriented x 3. Patient is hemodynamically stable. Patient will be discharged home with follow up PCP in the next 2-3 days - Diagnoses Provider Diagnoses: Tooth infection, Dental decay Discharge - Sign-Out/Discharge Documenting (check all that apply): Patient Departure - DISCHARGE - Discharge Plan Condition: Stable Disposition: HOME Prescriptions: Amoxicillin/Clavulanate TAB* [Augmentin TAB 875*] 875 mg PO BID #20 tab Patient Education Materials: Toothache (ED) Referrals: Demetrio Whitehead MD [Primary Care Provider] - 3 Days Additional Instructions: FOLLOW UP WITH DENTIST SOON POSSIBLE FOLLOW UP WITH YOUR PRIMARY CARE PROVIDER WITHIN ONE WEEK FOR HIGH BLOOD PRESSURE NOTED TODAY. RETURN TO ED FOR ANY NEW OR WORSENING SYMPTOMS. - Billing Disposition and Condition Condition: STABLE Disposition: Home - Attestation Statements Document Initiated by Scribe: Yes Documenting Scribe: Pelon Amador Provider For Whom Scribe is Documenting (Include Credential): Zev Campos MD Scribe Attestation: IPelon, scribed for Zev Campos MD on 02/13/18 at 1823. Scribe Documentation Reviewed: Yes Provider Attestation: The documentation as recorded by the scribe, Pelon Amador accurately reflects the service I personally performed and the decisions made by me, Zev Campos MD
[2018-02-13 14:43] VITALS: BP 128/74
== END 2018-02-13 14:42 | disposition home or self-care (01) ==
LOC: ED 13:23
DX: K04.7 Periapical abscess without sinus (principal); K02.9 Dental caries, unspecified
CPT/HCPCS: 99281; A9270-GY

== ENCOUNTER 2018-06-03 13:40 | Emergency (ER) | payer MEDICARE, BC ==
[2018-06-03] MEDS ORDERED: Ketorolac INJ* 60 MG/2 ML VIAL IM ONE (14:10)
--- NOTE | 2018-06-03 14:11 | ED ---
Lower Extremity - HPI Summary HPI Summary: An 87 y/o male brought in by [facility] ambulance presents to [facility] with a chief complaint of left knee pain since the morning of 06/03/18. The patient reports that he kneeling for 10 minutes while fixing a dresser. Now he reports that his pain is throughout his whole left leg. He rates his pain as a 9/10 in severity. He denies any fever, chills, erythema of eyes, sore throat, CP, SOB, cough, abdominal pain, N/V, dysuria, hematuria, edema, rash, or dizziness. 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 He denies being on blood thinners or having allergies to medication. He reports seeing Dr. Whitehead regularly and reports that everything is fine. - History of Current Complaint Chief Complaint: EDExtremityLower Stated Complaint: LEFT KNEE PAIN PER EMDS Time Seen by Provider: 06/03/18 13:47 Hx Obtained From: Patient, EMS Mechanism Of Injury: Other - after kneeling for 10 minutes Onset of Pain: Immediate, Hours, Prior to Arrival Onset/Duration: Still Present Severity Initially: Severe Severity Currently: Severe Pain Intensity: 9 Pain Scale Used: 0-10 Numeric Timing: Constant, Lasting Hours Location: Other - left knee and left leg Character Of Pain: Unable To Describe Associated Signs And Symptoms: Negative: Swelling, Fever, Abdominal Pain Aggravating Factor(s): Nothing Alleviating Factor(s): Nothing - Allergies/Home Medications Allergies/Adverse Reactions: Allergies Allergy/AdvReac Type Severity Reaction Status Date / Time No Known Allergies Allergy Verified 02/13/18 13:28 PMH/Surg Hx/FS Hx/Imm Hx Endocrine/Hematology History: Reports: Hx Diabetes, Hx Thyroid Disease Cardiovascular History: Reports: Hx Hypercholesterolemia, Hx Hypertension, Hx Peripheral Vascular Disease Denies: Hx Pacemaker/ICD Respiratory History: Reports: Other Respiratory Problems/Disorders - Atelectesis GI History: Reports: Other GI Disorders - APPE History: Denies: Hx Dialysis, Hx Renal Disease Musculoskeletal History: Reports: Hx Arthritis, Other Musculoskeletal History - 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 Sensory History: Reports: Hx Contacts or Glasses Denies: Hx Hearing Aid Opthamlomology History: Reports: Hx Contacts or Glasses Neurological History: Reports: Hx Dementia - possible Psychiatric History: Denies: Hx Panic Disorder - Surgical History Surgery Procedure, Year, and Place: skin graft; appendectomy, amputation of the metatarsal right foot, skin graft x R foot osteomyelitis Infectious Disease History: No Infectious Disease History: Reports: History Other Infectious Disease Denies: Traveled Outside the [place] in Last 30 Days - Family History Known Family History: Positive: Diabetes - Social History Alcohol Use: Occasionally Hx Substance Use: No Substance Use Type: Reports: None Hx Tobacco Use: No Smoking Status (MU): Former Smoker Type: Cigarettes Review of Systems Negative: Fever, Chills Negative: Erythema Negative: Sore Throat Negative: Chest Pain Negative: Shortness Of Breath, Cough Negative: Abdominal Pain, Vomiting, Nausea Negative: dysuria, hematuria Positive: Arthralgia - left knee pain, Myalgia - left leg pain. Negative: Edema Negative: Rash Neurological: Negative - dizziness All Other Systems Reviewed And Are Negative: Yes Physical Exam - Summary Physical Exam Summary: Constitutional: Well-developed, Well-nourished, Alert. (-) Distressed Skin: Warm, Dry HENT: Normocephalic; Atraumatic Eyes: Conjunctiva normal Neck: Musculoskeletal ROM normal neck. (-) JVD, (-) Stridor, (-) Tracheal deviation Cardio: Rhythm regular, rate normal, Heart sounds normal; Intact distal pulses; The pedal pulses are 2+ and symmetric. Radial pulses are 2+ and symmetric. (-) Murmur Pulmonary/Chest wall: Effort normal. (-) Respiratory distress, (-) Wheezes, (-) Rales Abd: Soft, (-) tenderness, (-) Distension, (-) Guarding, (-) Rebound Musculoskeletal: (-) Edema, FROM, no tenderness Lymph: (-) Cervical adenopathy Neuro: Alert, Oriented x3 Psych: Mood and affect Normal Triage Information Reviewed: Yes Vital Signs On Initial Exam: Initial Vitals Temp Pulse Resp BP Pulse Ox 98.3 F 68 16 139/70 95 06/03/18 13:46 06/03/18 13:46 06/03/18 13:46 06/03/18 13:46 06/03/18 13:46 Vital Signs Reviewed: Yes Diagnostics - Vital Signs Vital Signs Temp Pulse Resp BP Pulse Ox 06/03/18 13:46 98.3 F 68 16 139/70 95 - Laboratory Lab Statement: Any lab studies that have been ordered have been reviewed, and results considered in the medical decision making process. - Radiology knee x-ray Radiology Interpretation Completed By: Radiologist Summary of Radiographic Findings: 1. Degenerative changes of the left knee as described above. 2. 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 Please correlate to any signs or symptoms of lower extremity arterial. insufficiency. If the patient' s symptoms persist, follow-up imaging is recommended. ED physician has reviewed this imaging report. Re-Evaluation - Re-Evaluation First Eval Re-Evaluation Time: 15:25 Change: Improved Comment: Patient is feeling better, resting comfortably. Lower Extremity Course/Dx - Course Course Of Treatment: An 87 y/o male brought in by [facility] ambulance presents to [facility] with a chief complaint of left knee pain since the morning of 06/03/18. The patient reports that he kneeling for 10 minutes while fixing a dresser. Now he reports that his pain is throughout his whole left leg. He rates his pain as a 9/10 in severity. He denies any fever, chills, erythema of eyes, sore throat, CP, SOB, cough, abdominal pain, N/V, dysuria, hematuria, edema, rash, or dizziness. 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 He denies being on blood thinners or having allergies to medication. He reports seeing Dr. Whitehead regularly and reports that everything is fine. The physical exam revealed full range of motion, no tenderness. Mechanism of injury was not particularly high energy. Fracture unlikely. Knee x-ray impression: 1. Degenerative changes of the left knee as described above. 2. 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 Please correlate to any signs or symptoms of lower extremity arterial. insufficiency. If the patient's symptoms persist, follow-up imaging is recommended. ED physician has reviewed this imaging report. In the ED course the patient was given 60 mg Toradol IM. Upon re-eval the patient was resting comfortably. He will be discharged with a prescription for Naproxen and is agreeable with this plan. - Diagnoses Provider Diagnoses: Knee contusion Discharge - Sign-Out/Discharge Documenting (check all that apply): Patient Departure - DC Patient Received Moderate/Deep Sedation with Procedure: No - Discharge Plan Condition: Stable Disposition: HOME Prescriptions: Naproxen TAB* [Naprosyn 250 mg TAB*] 500 mg PO Q8H PRN #10 tab PRN Reason: Pain - Moderate To Severe Patient Education Materials: Knee Pain (ED) Referrals: Demetrio Whitehead MD [Primary Care Provider] - (2-3 days) Additional Instructions: RETURN TO THE EMERGENCY DEPARTMENT FOR CHANGING OR WORSENING SYMPTOMS - Billing Disposition and Condition Condition: STABLE Disposition: Home - Attestation Statements Document Initiated by Scribe: Yes Documenting Scribe: Curt Dennis Provider For Whom Scribe is Documenting (Include Credential): Gómez Olivera MD Scribe Attestation: Curt Fry, scribed for Gómez Olivera MD on 06/03/18 at 2230. Scribe Documentation Reviewed: Yes Provider Attestation: The documentation as recorded by the Curt webb accurately reflects the service I personally performed and the decisions made by Gómez olmos MD Status of Scribe Document: Viewed
[2018-06-03 16:02] VITALS: BP 138/70
== END 2018-06-03 16:00 | disposition home or self-care (01) ==
LOC: ED 13:40
DX: S80.02XA Contusion of left knee, initial encounter (principal); M25.562 Pain in left knee; Z87.891 Personal history of nicotine dependence; E11.9 Type 2 diabetes mellitus without complications; I10 Essential (primary) hypertension; I73.9 Peripheral vascular disease, unspecified; X58.XXXA Exposure to other specified factors, initial encounter; Y92.9 Unspecified place or not applicable
CPT/HCPCS: 96372; 99282; J1885

== ENCOUNTER 2019-03-01 04:18 | Emergency (ER) | payer MEDICARE, BC ==
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
[2019-03-01] MEDS ORDERED: NS 0.9% 1000 ML** 1,000 ML IV ONE (04:40)
[2019-03-01] MEDS ORDERED: oxyCODONE/Acetamin 5/325 MG* TAB PO ONE (04:42)
[2019-03-01 05:14] LABS: ABS Basophils 0.1 10^3/ul (0-0.2); ABS Eosinophils 0.4 10^3/ul (0-0.6); ABS Lymphocytes 1.6 10^3/ul (1.0-4.8); ABS Monocytes 1.2 10^3/ul (0-0.8); ABS Neutrophils 5.7 10^3/ul (1.5-7.7); Eosinophil % 4.9 %; Hematocrit 37 % (42-52); Hemoglobin 12.4 g/dL (14.0-18.0); Lymphocyte % 17.8 %; Mean Corpuscular HGB Conc 34 g/dL (31-36); Mean Corpuscular Hemoglobin 32 pg (27-31); Mean Corpuscular Volume 95 fL (80-94); Mean Platelet Volume 7.1 fL (7.4-10.4); Nucleated Red Blood Cells % 0.1; Platelet Count 216 10^3/uL (150-450); Red Blood Count 3.86 10^6 /uL (4.18-5.48); Red Cell Distribution Width 14 % (10-15)
[2019-03-01 05:31] LABS: Albumin 3.8 g/dL (3.2-5.2); Albumin/Globulin Ratio 1.4 (1-3); BUN/Creatinine Ratio 18.2 (8-20); C Reactive Protein 2.74 mg/L (<8.01); Calcium 9.5 mg/dL (8.6-10.3); EGFR African American 98.7 (>60); EGFR Non-African American 81.5 (>60); Globulin 2.7 g/dL (2-4); Total Bilirubin 0.5 mg/dL (0.2-1.0); Total Protein 6.5 g/dL (6.4-8.9)
[2019-03-01 06:00] LABS: Urine Appearance Clear; Urine Bilirubin Negative (Negative); Urine Blood Negative (Negative); Urine Color Yellow; Urine Glucose Negative (Negative); Urine Ketones Negative (Negative); Urine Nitrite Negative (Negative); Urine Protein 1+(30 mg/dL) (Negative); Urine Specific Gravity 1.015 (1.010-1.030); Urine Urobilinogen Negative (Negative)
[2019-03-01 06:02] LABS: Urine Bacteria Absent (Absent); Urine Red Blood Cell Trace(0-2/hpf) (Absent); Urine White Blood Cell Trace(0-5/hpf) (Absent)
[2019-03-01 06:56] VITALS: BP 130/68
== END 2019-03-01 06:37 | disposition home or self-care (01) ==
LOC: ED 04:18
DX: L03.115 Cellulitis of right lower limb (principal); L84 Corns and callosities; E11.9 Type 2 diabetes mellitus without complications; I10 Essential (primary) hypertension; I73.9 Peripheral vascular disease, unspecified; Z89.431 Acquired absence of right foot; Z87.891 Personal history of nicotine dependence; E78.00 Pure hypercholesterolemia, unspecified; E03.9 Hypothyroidism, unspecified; M79.671 Pain in right foot; R60.0 Localized edema; Z79.891 Long term (current) use of opiate analgesic
CPT/HCPCS: 36415; 80053; 81003; 81015; 83605; 85025; 86140; 87086; 96360; 99283; A9270-GY

== ENCOUNTER 2019-03-01 16:52 | Emergency (ER) | payer MEDICARE, BC ==
--- NOTE | 2019-03-01 18:33 | ED ---
Lower Extremity - HPI Summary HPI Summary: Patient complains of acute on chronic right foot pain. Denies new trauma. Patient seen here this AM for same symptoms, diagnosed with cellulitis. Patient went home and took a Percocet, started moaning and groaning and called EMS out of concern for allergic reaction to medication. Patient states pain has now improved after Percocet. 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 Denies any new symptoms, injury or pain. 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 [employer] Mechanism Of Injury: Other Severity Initially: Mild Severity Currently: Mild Pain Intensity: 4 Pain Scale Used: 0-10 Numeric Timing: Constant Location: Is Discrete @ Character Of Pain: Dull Associated Signs And Symptoms: Positive: Negative Aggravating Factor(s): Ambulation Alleviating Factor(s): Rest Able to Bear Weight: Yes - Allergies/Home Medications Allergies/Adverse Reactions: Allergies Allergy/AdvReac Type Severity Reaction Status Date / Time No Known Allergies Allergy Verified 02/13/18 13:28 PMH/Surg Hx/FS Hx/Imm Hx Endocrine/Hematology History: Reports: Hx Diabetes, Hx Thyroid Disease Cardiovascular History: Reports: Hx Hypercholesterolemia, Hx Hypertension, Hx Peripheral Vascular Disease Denies: Hx Pacemaker/ICD Respiratory History: Reports: Other Respiratory Problems/Disorders - Atelectesis GI History: Reports: Other GI Disorders - APPE History: Denies: Hx Dialysis, Hx Renal Disease Musculoskeletal History: Reports: Hx Arthritis, Other Musculoskeletal History - 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 Sensory History: Reports: Hx Contacts or Glasses Denies: Hx Hearing Aid Opthamlomology History: Reports: Hx Contacts or Glasses Neurological History: Reports: Hx Dementia - possible Psychiatric History: Denies: Hx Panic Disorder - Surgical History Surgery Procedure, Year, and Place: skin graft; appendectomy, amputation of the metatarsal right foot, skin graft x R foot osteomyelitis Infectious Disease History: No Infectious Disease History: Reports: History Other Infectious Disease Denies: Traveled Outside the [place] in Last 30 Days - Family History Known Family History: Positive: Diabetes - Social History Alcohol Use: Occasionally Hx Substance Use: No Substance Use Type: Reports: None Hx Tobacco Use: No Smoking Status (MU): Former Smoker Type: Cigarettes Review of Systems Constitutional: Negative Eyes: Negative ENT: Negative Cardiovascular: Negative Respiratory: Negative Gastrointestinal: Negative Genitourinary: Negative Musculoskeletal: Negative Skin: Negative Neurological: Negative Psychological: Normal All Other Systems Reviewed And Are Negative: Yes Physical Exam - Summary Physical Exam Summary: No erythema, ecchymosis, deformity, swelling noted to amputated right foot. Callus noted to distal right sole of foot. No purulent discharge. Mild tenderness with palpation. Triage Information Reviewed: Yes Vital Signs On Initial Exam: Initial Vitals Temp Pulse Resp BP Pulse Ox 97.7 F 68 18 137/68 96 03/01/19 17:02 03/01/19 17:02 03/01/19 17:02 03/01/19 17:02 03/01/19 17:02 Vital Signs Reviewed: Yes Appearance: Positive: Well-Appearing Skin: Positive: Warm Head/Face: Positive: Normal Head/Face Inspection Eyes: Positive: Normal Neck: Positive: Supple Respiratory/Lung Sounds: Positive: Clear to Auscultation Cardiovascular: Positive: Normal Abdomen Description: Positive: Nontender Musculoskeletal: Positive: Normal Neurological: Positive: Normal Psychiatric: Positive: Normal AVPU Assessment: Alert - [place] Coma Scale Best Eye Response: 4 - Spontaneous Best Motor Response: 6 - Obeys Commands Best Verbal Response: 5 - Oriented Coma Scale Total: 15 Procedures - Sedation Patient Received Moderate/Deep Sedation with Procedure: No Diagnostics - Vital Signs Vital Signs Temp Pulse Resp BP Pulse Ox 03/01/19 17:02 97.7 F 68 18 137/68 96 - Laboratory Lab Statement: Any lab studies that have been ordered have been reviewed, and results considered in the medical decision making process. Lower Extremity Course/Dx - Course Course Of Treatment: Patient complains of acute on chronic right foot pain. Denies new trauma. Patient seen here this AM for same symptoms, diagnosed with cellulitis. Patient went home and took a Percocet, started moaning and groaning and called EMS out of concern for allergic reaction to medication. Patient states pain has now improved after Percocet. 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 Denies any new symptoms, injury or pain. Vital signs within normal limits. As existing Rx for oxycodone and doxycycline. - Diagnoses Provider Diagnoses: Cellulitis, Foot pain, right Discharge ED - Sign-Out/Discharge Documenting (check all that apply): Patient Departure - Discharge Plan Condition: Stable Disposition: HOME Patient Education Materials: Cellulitis (ED) Referrals: Demetrio Whitehead MD [Primary Care Provider] - Additional Instructions: Take doxycycline as directed. Take Percocet as directed for pain. Follow-up with primary care. Return to the ED for any new or worsening symptoms. - Billing Disposition and Condition Condition: STABLE Disposition: Home - Attestation Statements Provider Attestation: I was available for consultation for this patient. I did not evaluate the patient, or participate in any medical decision making or disposition decisions unless I am specifically named in the chart as having consulted on the patient. If I have consulted on the patient, please see my own ED note on the patient encounter. Richar Pretty MD
[2019-03-01 19:46] VITALS: BP 116/96
== END 2019-03-01 20:04 | disposition home or self-care (01) ==
LOC: ED 16:52
DX: L03.115 Cellulitis of right lower limb (principal); E11.9 Type 2 diabetes mellitus without complications; E03.9 Hypothyroidism, unspecified; E78.00 Pure hypercholesterolemia, unspecified; I10 Essential (primary) hypertension; Z87.891 Personal history of nicotine dependence; Z89.421 Acquired absence of other right toe(s)
CPT/HCPCS: 99283